=== PATIENT | female | born 1935 | race Caucasian/White ===

== ENCOUNTER 2018-12-15 02:03 | Inpatient (IN) ==
--- NOTE | 2018-12-15 03:38 | PROVIDER DOCUMENTATION ---
HPI-Abdominal Pain/GI Problem - General Chief Complaint: Vomiting Stated Complaint: VOMITING, DIZZY, BLOODY DIARRHEA Time Seen by Provider: 12/15/18 02:31 Source: patient, family Allergies/Adverse Reactions: Patient Allergies Allergy/AdvReac Type Severity Reaction Status Date / Time cephalexin monohydrate * Allergy Intermediate ITCHING Verified 05/22/17 13:12 [From Personal On Demand] Home Medications: Home Medication List Medication Instructions Recorded Confirmed Last Taken Type Allopurinol 100 mg PO BID 03/25/15 12/15/18 12/14/18 21:00 History Folic Acid 800 mg PO DAILY 03/25/15 12/15/18 12/14/18 09:00 History Maynard-3/Dha/Epa/Fish Oil [Maynard-3 1 tab PO BID 03/25/15 12/15/18 12/14/18 20:00 History Fish Oil 1,200 mg Sfgl] One A Day Womens Formula 1 tab PO DAILY 03/25/15 12/15/18 12/14/18 09:00 History Levothyroxine [Synthroid] 75 microgm PO DAILY 05/15/15 12/15/18 12/14/18 09:00 History Esomeprazole [Nexium] 40 mg PO DAILY 05/20/15 12/15/18 12/14/18 09:00 History Rivaroxaban [Xarelto] 20 mg PO WSUPPER #0 tablet 07/07/15 12/15/18 12/14/18 20: 00 Rx Losartan Potassium 100 mg PO DAILY 05/22/17 12/15/18 12/14/18 09:00 History Ranitidine HCl 150 mg PO DAILY 05/22/17 12/15/18 12/14/18 09:00 History Albuterol Sulfate Inhaler 2 puff INH Q6H PRN PRN 12/15/18 12/15/18 Unknown History [Ventolin Hfa] Amlodipine Besylate [Norvasc] 5 mg PO DAILY 12/15/18 12/15/18 12/14/18 09:00 History C,E,Zinc,Copper 11/Wesia7m/Lut 1 each PO DAILY 12/15/18 12/15/18 12/14/18 09:00 History [Ocuvite Adult 50 Plus Softgel] Carvedilol [Coreg] 12.5 mg PO DAILY 12/15/18 12/15/18 12/14/18 09:00 History Fexofenadine HCl 180 mg PO DAILY 12/15/18 12/15/18 12/14/18 09:00 History Fluticasone Propionate [24 Hour 9.9 ml NS DAILY 12/15/18 12/15/18 12/14/18 09: 00 History Allergy] Hydralazine [Apresoline] 25 mg PO TID 12/15/18 12/15/18 12/14/18 21:00 History Hydrocodone/Acetaminophen 1 tab PO 4XDAY PRN 12/15/18 12/15/18 12/14/18 20:00 History [Hydrocodone-Acetamin 5-325 mg] Lubiprostone [Amitiza] 24 mcg PO DAILY 12/15/18 12/15/18 12/14/18 09:00 History Meclizine HCl [Antivert] 25 mg PO TID 12/15/18 12/15/18 12/14/18 23:00 History Ondansetron HCl 4 mg PO TID PRN 12/15/18 12/15/18 12/14/18 23:00 History Polyethylene Glycol 3350 [Miralax] 17 gm PO DAILY 12/15/18 12/15/18 12/14/18 09: 00 History - History of Present Illness-ABD Nature of Presenting Problems: 83 yo WF with known history of diverticulitis, constipation and anticoagulant therapy for atrial fib presents with dry heaves and rectal bleeding. Her daughter photograped the toilet which does apper to show a lot of BRB and light brown stool in the toilet. She has been dizzy although BP has never been low. She has apparently had one diverticular bleed in the past. Review of Systems - Adult - REVIEW OF SYSTEMS - ADULT Constitutional: reports: no symptoms reported, see HPI. denies: chills, fever Eyes: reports: decreased vision, blurred vision Ears, Nose, Mouth & Throat: reports: no symptoms reported Cardiovascular: reports: no symptoms reported, irregular heart rate Respiratory: reports: no symptoms reported Gastrointestinal: reports: see HPI, abdominal pain, constipation, diarrhea, frequent heartburn, nausea, rectal bleeding, vomiting Genitourinary: reports: no symptoms reported Musculoskeletal: reports: no symptoms reported Integumentary: reports: no symptoms reported Neurological: reports: no symptoms reported Psychiatric: reports: no symptoms reported Endocrine: reports: no symptoms reported Past History - Adult - PAST MEDICAL HISTORY-ADULT Review of Records: reports: Old Records Reviewed, Nursing Assessment Review, Medications Reviewed Cardiovascular: reports: A-Fib, HTN, hyperlipidemia Respiratory: reports: sleep apnea, other (sarcoidosis) Gastrointestinal: reports: GERD Genitourinary: reports: kidney disease, other (only has one kidney) Musculoskeletal: reports: chronic pain (back; disc disease) Psychiatric: reports: anxiety Endocrine/Immune: reports: thyroid disorder - PRIOR SURGERIES/PROCEDURES Surgical/Procedure History: reports: cholecystectomy, hysterectomy, tonsillectomy, orthopedic (extremity) (LT ankle), other (lung bx, cataract sx) - IMMUNIZATION STATUS Childhood Immunizations: See Nurse Assessment Flu Vaccine: See Nurse Assessment - FAMILY HISTORY Family History: reviewed, not pertinent Physical Exam-General - PHYSICAL EXAM-ADULT Initial Vital Signs Reviewed: Yes - CONSTITUTIONAL General Appearance: alert, mild distress - EYES Eyes: PERRL/EOMI, pale conjunctivae - HEAD, EARS, NOSE, MOUTH & THROAT HENMT: normocephalic/atraumatic, moist mucous membranes - NECK Neck: non-tender, full range of motion, supple - RESPIRATORY Respiratory: chest non-tender, lungs clear - CARDIOVASCULAR Cardiovascular: normal peripheral pulses, no gallop, no JVD, irregularly irregular - GASTROINTESTINAL (ABDOMEN) Abdominal Exam: soft, no organomegaly, no pulsatile mass, tenderness. negative : guarding, rebound, Cm's sign - LYMPHATIC Lymphatic: no adenopathy - MUSCULOSKELETAL Back Exam: normal inspection Extremity: normal range of motion - SKIN Integumentary: normal color, normal turgor, warm/dry - NEUROLOGIC Neurologic: grossly normal Progress - PLAN OF CARE/RESULTS Progress/Plan/Lab Results: Vital Signs - 8 hr 12/15/18 02:08 Temperature 97.6 F Pulse Rate 81 Respiratory Rate 16 Blood Pressure 148/86 O2 Sat by Pulse Oximetry 100 Orders Category Date Time Status CBC WITH ELECTRONIC DIFF [HEME] Stat Lab 12/15/18 03:11 Ordered COMPREHENSIVE METABOLIC PANEL [CHEM] Stat Lab 12/15/18 03:11 Ordered TYPE & SCREEN [BBK] Stat Lab 12/15/18 03:11 Ordered Result Diagrams: 12/15/18 20:25 12/15/18 03:55 - REASSESSMENT Reassessment #1 Time Reassessed: 03:43 Status: unchanged (No additional bleeding . Awaiting lab.) - CONSULTS/PCP/HOSPITALIST Notification #1 *Consult/PCP/Hospitalist*: Dr Case Time Discussed: 04:00 Consult Disposition: Admit Departure - Departure Date of Disposition Decision: 12/15/18 Time of Disposition Decision: 04:00 DIAGNOSIS: GI bleeding Disposition: ADMITTED INPATIENT 09 Certified Medical Emergency: Emergent Condition: Fair - Critical Care Note This patient required my direct & personal management of CC.: Yes Total Time (mins): 30 Critical Care Statement: This patient required my direct personal management to treat or rule out processes, the absence of which, could potentiallly result in sudden, clinically significant life or limb threatening deterioration. Attestation - Physician/ FER Attestation The physician spent face to face time with patient:: Yes Advanced Practice Provider documentation review:: Supervising physician onsite and consulted in the evaluation and care of this patient. The physician did have a face to face encounter with the patient.
[2018-12-15 04:11] LABS: BASO# 0.04 X1000 (0.0-0.2); BASO% 0.3 % (0.0-0.8); EOS# 0.06 X1000 (0.0-0.7); EOS% 0.5 % (0.0-10.0); HEMATOCRIT 38.8 % (37.0-47.0); HEMOGLOBIN 12.4 g/dL (12.0-16.0); IMM GRAN# 0.06 X1000 (0.0-0.04); IMM GRAN% 0.5 % (0.0-0.5); LYMPH# 1.89 X1000 (1.2-3.4); LYMPH% 14.3 % (20.5-51.1); MCH 29.5 PG (27-31); MCV 92.4 FL (81-99); MPV 9.2 FL (7.4-10.4); NEUT# 10.78 X1000 (1.4-6.5); NEUT% 81.4 % (42.2-75.2); PLT 266 X1000 (130-400); WBC 13.23 X1000 (4.8-10.8)
[2018-12-15] MEDS ORDERED: ZOFRAN IV ONE (04:17)
[2018-12-15 04:34] LABS: AGAP 12; ALB/GLOB RATIO 1.2; ALBUMIN 4.3 g/dL (3.5-5.0); ALKALINE PHOSPHATASE 103 U/L (32-104); BUN 16 mg/dL (8-22); CHLORIDE 102 mmol/L (98-107); COSMO 282; CREATININE 0.7 mg/dL (0.5-0.9); ESTIMATED GFR > 60; GLUCOSE 155 mg/dL (70-104); GOT 16 U/L (10-30); GPT 13 U/L (10-36); POTASSIUM 4.3 mmol/L (3.5-5.1); SODIUM 139 mmol/L (136-145); TCO2 25 mmol/L (25-35); TOTAL BILIRUBIN 0.34 mg/dL (0.20-1.00); TOTAL PROTEIN 7.8 g/dL (6.3-8.3)
[2018-12-15] MEDS ORDERED: NS 1,000 ML ONE (05:24)
[2018-12-15] MEDS ORDERED: MORPHINE IV ONE (05:46)
[2018-12-15] MEDS ORDERED: PROTONIX IV ONE (05:46)
[2018-12-15] MEDS ORDERED: NS 1,000 ML IV ONE (05:46)
[2018-12-15] MEDS ORDERED: SODIUM CHLORIDE 0.9% INJ ONE ×2 (05:46→08:15)
[2018-12-15 06:52] LABS: INR 1.25; PROTIME 16.7 Seconds (11.0-16.0)
[2018-12-15 06:53] LABS: PTT 29.8 Seconds (22.3-41.8)
[2018-12-15 07:01] LABS: HEMOGLOBIN A1C 5.3 % (4.8-6.0)
--- NOTE | 2018-12-15 07:10 | HISTORY AND PHYSICAL ---
ADDENDUM The patient was admitted because of bloody diarrhea for a couple of days but no fever. She also complains of lower abdominal pain. Has increased hematochezia today with some dizziness. She is on Xarelto for atrial fibrillation. She also complains of nausea and had a few episodes of vomiting today. So far, her vital signs are 148/86, respirations 16, pulse 81, temperature 97.6. White count is 13,000, H and H 12 and 38, platelets 266. PT/INR pending. BUN 16, creatinine 0.7. Exam is notable for lower abdominal tenderness but no peritoneal signs. The patient is somewhat pallid. CT scan has been ordered to rule out diverticulitis and empiric antibiotics will be started. Her GI pH is Dr. Bull, and he will need to be consulted. In the interim, will start the patient on Zosyn versus Levaquin and Flagyl, and IV fluids, and treat symptomatically. cc: Mary Traore MD
[2018-12-15] MEDS ORDERED: VENTOLIN HFA INH PRN (08:15)
--- NOTE | 2018-12-15 08:19 | Diag Imaging Result Doc PS360 ---
EXAM: CHEST-PORTABLE 12/15/2018 HISTORY: SOB TECHNIQUE: AP portable at 0811 COMMENT: There is cardiomegaly. There is probable fibrosis in the lingula which has not changed since 12/30/2017. Otherwise there has been no significant change. IMPRESSION: Stable chest. Electronically signed by Geoff Monteiro 12/15/2018 8:16 AM
[2018-12-15] MEDS ORDERED: ZOFRAN IV PRN (08:30)
--- NOTE | 2018-12-15 08:36 | Diag Imaging Result Doc PS360 ---
EXAM: CT ABD/PELVIS W/PO AND IV CON INDICATION: Hematochezia,Diarrhea,Abdominal Tenderness ER11 TECHNIQUE: This exam was performed using automated exposure control, adjustment of mA or kV according to patient size, and/or use of iterative reconstruction technique. COMPARISON: 04/17/2017 FINDINGS: There is subsegmental atelectasis +/- fibrosis at the lung bases. The liver, gallbladder, spleen, and pancreas are unremarkable. There is a stable right adrenal adenoma. The right kidney is absent. There are a couple of small simple appearing renal cysts on the left. The left kidney is unremarkable, otherwise. The urinary bladder is unremarkable. There has been a prior hysterectomy. There is moderate diverticulosis coli mainly involving the sigmoid colon and distal descending colon. There is mild inflammatory stranding around the proximal sigmoid colon and distal descending colon that appears to emanate from diverticula indicating mild diverticulitis. No pericolonic abscess free gas is identified to indicate perforation. There is no evidence of bowel obstruction. 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 The remainder of the GI tract is essentially unremarkable. There are shotty small lymph nodes at the root of mesentery with surrounding haziness that is stable suggesting chronic mild mesenteric panniculitis. There is extensive multilevel degenerative arthropathy throughout the spine and lumbar scoliosis. IMPRESSION: 1.Suggestion of mild distal descending and proximal sigmoid colonic diverticulitis. No evidence of perforation. 2.Other incidental/nonacute findings detailed above. Electronically signed by Peterson Hernández 12/15/2018 8:33 AM
--- NOTE | 2018-12-15 08:36 | EKG Report ---
Test Performed on : 12/15/2018 04:29:44 AM Test Reason : cp Blood Pressure : / mmHG Vent. Rate : 071 BPM Atrial Rate : 069 BPM P-R Int : 000 ms QRS Dur : 082 ms QT Int : 424 ms P-R-T Axes : 000 -11 000 degrees QTc Int : 460 ms Atrial fibrillation. Nonspecific ST and T wave abnormality Abnormal ECG When compared with ECG of 30-DEC-2017 10:34, Nonspecific T wave abnormality no longer evident in Lateral leads Unconfirmed Result
[2018-12-15] MEDS ORDERED: COREG PO SCH (09:00)
[2018-12-15 09:49] LABS: HEMATOCRIT 36.3 % (37.0-47.0); HEMOGLOBIN 11.3 g/dL (12.0-16.0)
[2018-12-15] MEDS ORDERED: MORPHINE IV PRN (10:30)
[2018-12-15] MEDS: COREG PO SCH (10:44)
[2018-12-15] MEDS: NORVASC PO SCH (10:44)
[2018-12-15] MEDS: ZOSYN 3.375 GM in NS 50 ML IV SCH ×2 (10:45→17:29)
[2018-12-15] MEDS: NS 1,000 ML IV SCH (10:45)
[2018-12-15] MEDS: HUMALOG SUBQ SCH ×3 (11:53→21:41)
[2018-12-15 12:38] LABS: HEMATOCRIT 36.4 % (37.0-47.0); HEMOGLOBIN 11.5 g/dL (12.0-16.0)
[2018-12-15 13:59] LABS: URINE SOURCE CATH
[2018-12-15 14:07] LABS: BILIRUBIN URINE NEGATIVE (NEGATIVE); BLOOD URINE NEGATIVE (NEGATIVE); COLOR STRAW; GLUCOSE URINE NEGATIVE (NEGATIVE); KETONE URINE NEGATIVE (NEGATIVE); LEUKOCYTES URINE NEGATIVE (NEGATIVE); NITRITE URINE NEGATIVE (NEGATIVE); PH URINE 6.5; PROTEIN URINE 50 mg/dL (NEGATIVE); SP GRAVITY URINE 1.004; TURBIDITY URINE CLEAR (CLEAR); UROBILINOGEN URINE NORMAL (NORMAL)
[2018-12-15 14:10] LABS: UR EPITHELIAL CELLS <10 /HPF (<10); URINE BACTERIA NEGATIVE /HPF; URINE RBC <10 /HPF (<10); URINE WBC <10 /HPF (<10)
--- NOTE | 2018-12-15 15:45 | PROGRESS NOTE ---
DATE: 12/15/2018 SUBJECTIVE: The patient still with some lower abdominal pain which is somewhat improved. Still with tenderness in the suprapubic area. Nausea improved and no further vomiting. OBJECTIVE: A CT obtained suggesting diverticulitis. Currently on treatment with Zosyn. Gastroenterology on board, given bloody bowel movements, but no plans for urgent endoscopy at this time. It was not commented on by Radiology, but on partial review of her CT scan, she appears to have a markedly distended bladder. ASSESSMENT AND PLAN: On questioning, the family does report some issues with incontinence over the last day or 2. I suspect her suprapubic tenderness is related to this. Discussed with Nursing that we will place Cabral and monitor output. Once other issues are stabilized, we will remove Cabral and give voiding trial. If she continues to have urinary retention, then may need urologic evaluation. Repeat blood counts with slight down trend from admission but stable on last recheck. Continue monitoring blood counts and antibiotics for gastrointestinal (GI) bleed, diverticulitis, and Cabral for urinary retention.
[2018-12-15 16:01] LABS: HEMATOCRIT 34.4 % (37.0-47.0); HEMOGLOBIN 10.9 g/dL (12.0-16.0)
[2018-12-15] MEDS: TYLENOL PO PRN (17:29)
[2018-12-15] MEDS: PROTONIX IV SCH (19:55)
[2018-12-15 20:57] LABS: HEMATOCRIT 31.6 % (37.0-47.0); HEMOGLOBIN 9.9 g/dL (12.0-16.0)
[2018-12-16] MEDS: NS 1,000 ML IV SCH (00:01)
[2018-12-16] MEDS: ZOSYN 3.375 GM in NS 50 ML IV SCH ×4 (00:01→18:30)
[2018-12-16] MEDS: COREG PO SCH ×3 (00:01→22:01)
[2018-12-16 03:11] LABS: HEMATOCRIT 33.3 % (37.0-47.0); HEMOGLOBIN 10.5 g/dL (12.0-16.0)
--- NOTE | 2018-12-16 05:06 | CONSULTATION ---
DATE OF CONSULTATION: 12/15/2018 REASON FOR CONSULTATION: Rectal bleeding, nausea, vomiting, abdominal pain. HISTORY OF PRESENT ILLNESS: This is an 83-year-old white female known to our practice. She does have a history of diverticulitis. She has a history of constipation and had last been seen in our office in July of 2018. At that time she was taking Amitiza and MiraLAX for constipation. At that time she complained of occasional blood in the stool. She is on Xarelto. This presentation she reported onset of abdominal pain, episodes of nausea and vomiting, and several episodes of rectal bleeding. She had reported bright red blood with brown stool. Since admission she has had no further episodes of bleeding and no further episodes of vomiting. The patient also complained of burning when she urinates and lower pelvic pain. She has complained of some dizziness. Abdominal pelvis CT scan showed possible distal descending and proximal sigmoid diverticulitis with no evidence of perforation. Dr. Bull had viewed the CT scan and noted distention of her bladder. Again the patient had complained of burning and pain on urination with lower abdominal pain. PAST MEDICAL HISTORY: Atrial fibrillation on Xarelto, degenerative disk disease , GERD, constipation, hypertension, sarcoidosis, history of sleep apnea, spinal stenosis , thyroid disease. PAST SURGICAL HISTORY: Ankle surgery, cataract surgery, hysterectomy, lung surgery, tonsillectomy. She has had an EGD and colonoscopy. ALLERGIES: To Keflex causing itching. HOME MEDICATIONS: 1. Albuterol inhaler as needed. 2. Allopurinol 100 mg twice daily. 3. Norvasc 5 mg daily. 4. Multivitamin daily. 5. Coreg 12.5 mg daily. 6. Nexium 40 mg daily. 7. Fexofenadine 180 mg daily. 8. Fluticasone 9.9 daily. 9. Folic acid 800 mg daily, 10. Apresoline 25 mg 3 times a day. 11. Hydrocodone 5/325 four times a day as needed. 12. Synthroid 75 mcg daily. 13. Losartan 100 mg daily. 14. Amitiza 24 mcg daily to twice daily. 15. Antivert 25 mg 3 times a day. 16. Justice fish oil twice a day. 17. Zofran 4 mg 3 times a day as needed. 18. Women's multivitamin daily. 19. MiraLAX 17 g daily. 20. Ranitidine 150 mg daily. 21. Xarelto 20 mg with supper. SOCIAL HISTORY: No alcohol use. No tobacco use. She has 4 children. FAMILY HISTORY: Esophageal cancer - sister. GERD - mother and daughter. Hypertension - mother. IBS - daughter. Kidney disease - brother and sister. Stroke - mother. REVIEW OF SYSTEMS: Per history of present illness. PHYSICAL EXAMINATION: Vital Signs: Temperature 97.8 degrees, pulse listed as 44 previous pulse 55, prior to that 70, respirations 18, blood pressure 129/49. General: The patient is awake, alert, no acute distress. HEENT: Normocephalic and atraumatic. Pupils are equal, round and reactive to light. Sclerae are anicteric. Abdomen: With some tenderness lower abdomen, otherwise soft with positive bowel sounds. LABORATORY DATA: Hematology: WBC 13.23, hemoglobin 10.9, hematocrit 34.4, MCV 92.4. Coagulation: Protime 16.7, INR 1.25, PTT 29.8. Chemistry: Sodium 139, potassium 4.3, chloride 102, CO2 of 25, BUN 16, creatinine 0.7, glucose 155, total bilirubin 0.34, AST 16, ALT 13, alkaline phosphatase 103. IMAGING: Abdominal pelvis CT scan showed moderate diverticulosis, inflammatory stranding around the sigmoid colon and distal sigmoid colon with possible mild diverticulitis, no evidence of bowel obstruction. On viewing the CT scan with Dr. Bull he noted distention of the bladder. Cabral catheter was placed. Her I and Os: She has had 400 mL of urine output with Cabral catheter. ASSESSMENT AND PLAN: 1. Rectal bleeding. 2. Nausea and vomiting. 3. Dysuria with enlarged bladder, Cabral catheter was placed. 4. Possible diverticulitis per CT scan. Continue antibiotics. We will continue symptomatic treatment and supportive care. Monitor for further active bleeding. She has not had any further bleeding since admission. Monitor hemoglobin and hematocrit and transfuse packed red blood cells as needed. Cabral catheter was ordered and placed and return urine output of 400 mL. The patient was also seen by Dr. Bull. Thank you for this consultation. Dictated by ALEX Archer for Navin Bull MD cc: ALEX Jones MD [facility]
[2018-12-16] MEDS: SYNTHROID PO SCH ×2 (05:53→06:15)
[2018-12-16] MEDS: HUMALOG SUBQ SCH ×4 (06:15→22:02)
[2018-12-16 06:58] LABS: BASO# 0.06 X1000 (0.0-0.2); BASO% 0.8 % (0.0-0.8); EOS% 4.2 % (0.0-10.0); HEMATOCRIT 34.8 % (37.0-47.0); HEMOGLOBIN 10.8 g/dL (12.0-16.0); LYMPH% 35.1 % (20.5-51.1); MCH 29.3 PG (27-31); MCV 94.6 FL (81-99); MONO# 0.61 X1000 (0.11-0.59); MONO% 8.6 % (1.7-9.3); MPV 9.2 FL (7.4-10.4); NEUT# 3.66 X1000 (1.4-6.5); NEUT% 51.3 % (42.2-75.2); PLT 220 X1000 (130-400); RBC 3.68 XMIL (4.2-5.4); RDW 15.3 % (11.5-14.5); WBC 7.13 X1000 (4.8-10.8)
[2018-12-16 07:18] LABS: AGAP 11; BUN 8 mg/dL (8-22); CHLORIDE 111 mmol/L (98-107); COSMO 287; CREATININE 0.7 mg/dL (0.5-0.9); ESTIMATED GFR > 60; GLUCOSE 95 mg/dL (70-104); POTASSIUM 3.7 mmol/L (3.5-5.1); SODIUM 145 mmol/L (136-145); TCO2 23 mmol/L (25-35)
[2018-12-16] MEDS ORDERED: SODIUM CHLORIDE 0.9% 10 ML ONE (07:22)
--- NOTE | 2018-12-16 07:39 | HISTORY AND PHYSICAL ---
PRIMARY CARE PROVIDER: Dr. Orin Chan GASTROENTEROLOGY: Navin Bull MD CHIEF COMPLAINT: Nausea, vomiting, and diarrhea. HISTORY OF PRESENT ILLNESS: Ms. Galindo is an 83-year-old elderly female [facility] reported symptoms of bloody diarrhea that has increased for the past few days. She has had increased hematochezia today with some associated symptoms of dizziness, weakness and fatigue. She also reports that she has some nausea and a few episodes of vomiting, though no reported hematemesis or coffee ground emesis. She also has been complaining of some lower abdominal pain as well. She has denied any fever or body aches though has reported that she has felt hot and cold, so maybe she has been experiencing some chills. She also has been reporting some shortness of breath at rest as well though denies any cough. She denies any headache, chest pain, or dysuria, though the patient has reported some occasional incontinence. She denies any pain, numbness, or tingling in extremities. The patient does have a history of having diverticulitis and has had a past history of diverticular bleed. She denies any [id number] NSAID medications though she does have atrial fibrillation and is on anticoagulation with Xarelto. She also does have a history of gastroesophageal reflux disease with an EGD and colonoscopy in May 2017 showing that she had gastritis, lipoma of the ascending colon and diverticulosis. Upon evaluation in the ER, the patient's initial vital signs were 97.6, heart rate 81, respirations 16, blood pressure 148/86, and oxygen saturation 100% on room air. Hemoglobin and hematocrit are stable at this time with hemoglobin being 12.4 and hematocrit 38.8. INR is 1.25. Her chemistries were pretty unremarkable. Upon my examination in the ER, we did find that the patient has been having hematochezia for quite awhile, that Dr. Bull has been following this, though this did increase over the last few days with the worst being this evening prior to her arrival and now she is having associated symptoms with dizziness, weakness and fatigue, as well as some nausea and vomiting. She is complaining of some lower abdominal pain, though the patient was quite tender upon examination. This was pretty much generalized though was the worst in her right lower quadrant. Given this, we did perform CT abdomen and pelvis with oral and IV contrast which did show that there was suggestion of mild distal descending and proximal sigmoid colonic diverticulitis but no evidence of perforation. The patient will be admitted for further treatment and evaluation of diverticulitis and lower GI bleed. REVIEW OF SYSTEMS: A 14-point review of systems was conducted with the patient and all were negative except for pertinent positives mentioned above in HPI. PAST MEDICAL HISTORY: 1. Hypertension. 2. Hyperlipidemia. 3. Chronic atrial fibrillation on anticoagulation with Xarelto. 4. Sleep apnea for which she wears CPAP at night. 5. History of sarcoidosis. 6. Gastroesophageal reflux disease. 7. Esophagitis. 8. Duodenitis. 9. Gastritis. 10.Diverticulitis with a history of previous diverticular bleed. 11.Anxiety. 12.Hypothyroidism. 13.Chronic kidney disease. 14.Steatosis of the liver. 15.Vertigo. 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 PAST SURGICAL HISTORY: 1. Hysterectomy. 2. Tonsillectomy. 3. Left ankle surgery. 4. Lung biopsy. 5. Bilateral cataract surgery. SOCIAL HISTORY: The patient has no known current or past history of tobacco, alcohol, or illicit drug use. She does live alone though her daughter lives next to her. According to her daughter, the patient is pretty much bed bound except for she does occasionally get up to a wheelchair though requires assistance for this. FAMILY HISTORY: Positive for her mother having a history of stroke, and her father as well as other family members having diabetes mellitus. ALLERGIES: The patient has allergy to Keflex. HOME MEDICATIONS: 1. Ventolin HFA inhaler 2 puffs inhaled q.6 hours p.r.n. 2. Allopurinol 100 mg p.o. b.i.d. 3. Norvasc 5 mg p.o. daily. 4. Ocuvite Adult 50 plus soft gel 1 p.o. daily. 5. Coreg 2.5 mg p.o. daily. 6. Nexium 40 mg p.o. daily. 7. Fexofenadine 180 mg p.o. daily. 8. Fluticasone propionate 1 spray in bilateral nares daily. 9. Folic acid 800 mg p.o. daily. 10.Apresoline 25 mg p.o. t.i.d. 11.[place] 5 mg 1 p.o. 4 times a day p.r.n. for pain. 12.Levothyroxine 75 mcg p.o. daily. 13.Losartan potassium 100 mg p.o. daily. 14.Amitiza 25 mcg p.o. daily. 15.Antivert 25 mg p.o. t.i.d. 16.[place] 3 fish oil 200 mg soft gel 1 tablet p.o. b.i.d. 17.Zofran 4 mg p.o. t.i.d. p.r.n. for nausea. 18.One A Day Women's' Formula 1 tablet p.o. daily. 19.MiraLAX 17 grams p.o. daily. 20. [*] 100 mg p.o. daily. 21.Xarelto 20 mg p.o. with supper. DIAGNOSTIC DATA/LABORATORY RESULTS: White blood cell count is 13,230, hemoglobin 12.4, hematocrit 38.8, platelet count 266. PT 16.7, INR 1.25, PTT 29.8. Sodium 139, potassium 4.3, chloride 102, serum bicarb 25, BUN 16, creatinine 0.7, glucose 155. Calcium 10. Liver function tests within normal limits. Urinalysis was obtained and showed positive for protein, negative for glucose, ketones, blood, nitrites, leukocytes, white blood cells or bacteria. EKG showed atrial fibrillation at a rate of 71 with a QTC of 460. Chest x-ray showed no acute abnormalities as per Radiology. CT abdomen and pelvis did show suggestion of mild distal descending and proximal sigmoid colonic diverticulitis. There was no evidence of perforation. Please see full report for other incidental and nonacute findings. PHYSICAL EXAMINATION: VITAL SIGNS: Heart rate 71, respirations 20, blood pressure 177/79, oxygen saturation 96% on room air. GENERAL: Ms. Galindo is a pleasant, elderly female. She was resting on the ER stretcher. She was in no acute distress. She was awake, alert, and able to answer questions appropriately. HEENT: Head is atraumatic, normocephalic. Pupils are equal, round and reactive to light, 3 mm bilaterally and brisk. Subconjunctivae were pink. Oral mucosa is moist. Oropharynx clear. NECK: Supple. Trachea midline. CARDIOVASCULAR: The patient has S1 and S2 present. There were no murmurs, gallops or rubs appreciated. She did have a heart rate in the 70s with an irregularly irregular rhythm. PULMONARY: The patient has symmetrical chest expansion bilaterally. Lungs sounds were clear to auscultation in bilateral full oliveira. ABDOMEN: Soft, did not appear to be distended, though the patient did have tenderness noted upon palpation that was generalized though was worse in the right lower quadrant. Bowel sounds were present in all four quadrants. EXTREMITIES: No cyanosis or edema noted. Pulse, motor and sensory were intact in all extremities. Pedal pulses and radial pulses were 2+ bilaterally. INTEGUMENTARY: The patient's skin is pink, warm, and dry. NEUROLOGIC: The patient is alert and oriented x4. She is experiencing some generalized weakness at this time. There were no focal neurologic deficits noted. ASSESSMENT AND PLAN: 1. Gastrointestinal bleeding. At this time, we suspect this is a lower gastrointestinal bleed. She has been having reports of hematochezia for what sounds like is probably a few months, being followed by Dr. Bull though they report this has been worse over the last couple of days with the worst being just prior to her arrival to the emergency room. She was having associated symptoms of dizziness, fatigue and weakness as well as some nausea and vomiting. The patient does have a history of diverticulitis with a diverticular bleed. CT abdomen and pelvis did show mild distal descending and proximal sigmoid colonic diverticulitis, though there was no evidence of perforation. The patient's hemoglobin and hematocrit were stable at this time. She is also hemodynamically stable. Blood pressure is adequate and slightly elevated. We will continue to monitor her hemodynamic status with frequent vital signs and q.4 hour hemoglobin and hematocrit checks. She has been typed and cross matched. Given her findings of diverticulitis, we have gone ahead and placed her with antibiotic coverage with Zosyn. Blood cultures have been obtained as well. We will hold her Xarelto and any other anticoagulants at this time. We have placed her with Protonix 40 mg IV q.12 hours and have placed a consult with Dr. Bull, and will await his evaluation and further recommendations for management. 2. Diverticulitis. Will continue with treatment as mentioned above for #1. 3. Chronic atrial fibrillation. The patient is on anticoagulation with Xarelto. We have held this. We will continue her Coreg. The patient is in atrial fibrillation at this time though she is rate controlled. Will continue to monitor closely. 4. Hypertension. We will implement her Coreg at this time and monitor her blood pressure in response to this. If her blood pressure remains high, we can implement some of her other blood pressure medications though we will monitor this closely given that she does possibly have an acute gastrointestinal bleed. 5. Diabetes mellitus. We have placed the patient on Lispro sliding scale insulin. Will do pattern fingerstick blood sugars. 6. Sleep apnea. We will ask the patient to bring her CPAP from home so that she can use this while in the hospital. 7. Hypothyroidism. Will continue her levothyroxine. 8. Deep venous thrombosis prophylaxis will be provided with sequential compression devices. The patient has been placed on the medical floor with telemetry. She will have vital signs q.4 hours. Will do strict intake and output and incentive spirometry. She will be on a clear liquid diet. Will also repeat a CBC and BMP in the morning. Further orders and recommendations pending hospital course, diagnostic studies and physician evaluation. We also will give her 1 liter normal saline bolus and continue with gentle fluid hydration with normal saline at 85 mL per hour. Dictated by ALEX Aguilar for Mary Traore MD cc: Mary Traore MD
[2018-12-16] MEDS: NORVASC PO SCH (09:36)
[2018-12-16] MEDS: PROTONIX IV SCH (09:36)
--- NOTE | 2018-12-16 13:59 | PROGRESS NOTE ---
DATE: 12/16/2018 SUBJECTIVE: Patient states she feels a little better today. She reports having a bowel movement with no noted rectal bleeding. Abdominal pain has improved. She has tolerated some clear liquids. OBJECTIVE: Vital Signs: Temperature 97.7 degrees, pulse 62, respirations 21, blood pressure 179/66. General: Patient is awake, alert, in no acute distress. Abdomen: Soft, nontender at present time. Positive bowel sounds. LABORATORY DATA: Hematology: WBCs 7.13, hemoglobin 10.8, hematocrit 34.8, MCV 94.6, platelets 220,000. Chemistry: Sodium 145, potassium 3.7, chloride 111, CO2 of 23, BUN 8, creatinine 0.7, glucose 95. ASSESSMENT AND PLAN: 1. Rectal bleeding. Seems to have resolved. 2. Dysuria with enlarged bladder. Patient has had Cabral catheter and having good urine output. 3. Diverticulitis per CT scan. Continue antibiotics. PLAN: Continue to monitor for any further active bleeding. Her hemoglobin and hematocrit have been stable. Continue antibiotic continue symptomatic treatment and supportive care. Further plans to be made according to her progress. I have discussed this case with Dr. Bull. Dictated by ALEX Archer for Navin Bull MD cc: ALEX Jones MD
--- NOTE | 2018-12-16 15:40 | PROGRESS NOTE ---
DATE: 12/16/2018 Interval history. Ms. Galindo was admitted for left lower quadrant diverticulitis and lower gastrointestinal bleed. She was being managed with intravenous antibiotics. She has been tolerating diet well. SUBJECTIVE: Patient and her son at bedside. Patient states she is feeling better than she came in. She has some nausea but denies any more vomiting. She had 1 episode of dizziness but she has had that as a history of vertigo. Her abdominal pain has significantly decreased now it is localized to left lower quadrant. She has had bowel movements overnight which did not look bloody. I discussed with them about diverticulitis and our treatment plan, answered all of her questions. OBJECTIVE: Currently vitals temperature 97.7 degrees, pulse 62, respiratory 21 , blood pressure 179/66 saturating 100% on room air. Patient appears hard of hearing. Oral cavity is moist. Air entry bilaterally equal. No wheeze, rhonchi, crackles.Cardiovascular: S1, S2 normal. No murmur, rub, or gallop. Abdomen: Soft. Tenderness in left lower quadrant. Active bowel sounds. No hepatosplenomegaly. No lower extremity edema. Neurologic: Alert and oriented x3. LABS: Suggestive of resolution of leukocytosis, stable hemoglobin, hematocrit and platelet count. Electrolytes suggestive of high chloride but normal kidney function. Microbiology, blood culture no growth till date. IMAGING: No new imaging data today. ASSESSMENT AND PLAN: 1. Acute diverticulitis leading to acute lower gastrointestinal bleed. Continue patient on intravenous Zosyn, continue patient on clear liquid diet. I will advance it to GI soft diet tomorrow if she continues to do well. GI on board. 2. Acute blood loss anemia because of acute lower gastrointestinal bleed. It has stopped spontaneously. She did not require any intervention. Currently hemoglobin is acceptable range. No need of transfusion. 3. History of chronic atrial fibrillation on chronic anticoagulation with Xarelto currently in atrial fibrillation with controlled ventricular rate. Continue patient's home carvedilol and continue to hold Xarelto. 4. Essential hypertension. Continue amlodipine, hypothyroidism, continue levothyroxine, hyperlipidemia, continue omega-3 fatty acids, history of sarcoidosis and cough, continue albuterol sulfate as needed. 5. History of chronic gastroesophageal reflux disease. Continue esomeprazole. 6. Disposition. Patient remains inside the hospital for need for intravenous antibiotics. I will have physical therapy evaluate the patient. For her acute urinary retention Cabral catheter has been placed. I will give her a voiding trial tomorrow. Her urinalysis was unremarkable for infection. Plan of care was discussed with patient and her family at bedside. All of the questions have been answered. cc: Narayan Middleton MD MTDD
[2018-12-16] MEDS: FISH OIL CONCENTRATE PO SCH (22:01)
[2018-12-17] MEDS: ZOSYN 3.375 GM in NS 50 ML IV SCH ×4 (00:38→18:39)
[2018-12-17] MEDS: SYNTHROID PO SCH (06:35)
[2018-12-17] MEDS: FISH OIL CONCENTRATE PO SCH ×2 (08:34→20:12)
[2018-12-17] MEDS: NEXIUM PO SCH (08:34)
[2018-12-17] MEDS: FLONASE NAS SCH (08:34)
[2018-12-17] MEDS: NORVASC PO SCH (08:34)
[2018-12-17] MEDS: COREG PO SCH ×2 (08:35→20:13)
[2018-12-17] MEDS: HUMALOG SUBQ SCH ×3 (08:40→16:55)
--- NOTE | 2018-12-17 15:42 | PROGRESS NOTE ---
DATE: 12/17/2018 SUBJECTIVE: Patient is awake and alert in no acute distress. Her family is at the bedside. Daughter states they did discontinue her Cabral catheter, and she has had 3 to 4 incontinence of urine. They state there was a bladder scan done that showed 400 mL of urine. Prior to her admission, patient did not have incontinence. She does complain of burning and pain with urination, but her urinalysis did not show evidence of infection. She has had no further rectal bleeding. She did have a loose stool. OBJECTIVE: Vital Signs: Temperature 97.5 degrees, pulse 60, respirations 20, blood pressure 171/66. General: Patient is awake, alert, and in no acute distress. LABORATORY: Hematology: WBC 7.13, hemoglobin 10.8, hematocrit 34.8. Chemistry: Sodium 145, potassium 3.7, chloride 111, CO2 of 23, BUN 8, creatinine 0.7, glucose 95. ASSESSMENT: 1. Diverticulitis on antibiotics. 2. Anemia. Continue to monitor. 3. Rectal bleeding has resolved. 4. Atrial fibrillation. Her Xarelto is currently on hold. 5. Urinary retention and incontinence. RECOMMENDATIONS: Recommend patient try to get up to at least the bedside commode to see if she can empty her bladder better. If she continues to have issues, she may need a Urology consultation. We will defer to hospitalist for this management. GI will continue to follow during her hospital course, and further plans will be made as needed. I have discussed this case with Dr. Bull. Dictated by ALEX Archer for Navin Bull MD cc: ALEX Jones MD
[2018-12-17] MEDS ORDERED: ANTIVERT PO PRN (15:48)
--- NOTE | 2018-12-17 19:25 | PROGRESS NOTE ---
DATE: 12/17/2018 INTERVAL HISTORY: No events overnight. The patient was able to come out of bed and sit in the chair after physical therapy help. Her Cabral catheter was removed. After that , she has been urinating in her diaper. She has not been able to come out of bed in sit in the commod. The patient is denying any chest pain, nausea/vomiting, abdominal pain. Her nausea/vomiting has resolved. She had a loose bowel movement today currently. OBJECTIVE: Vital signs: She has been afebrile with temperature of 97.3 degrees , pulse 55, blood pressure 170/67, saturating 97% room air. General: She does not appear in any acute distress. HEENT: Oral cavity is moist. Lungs: Air entry bilaterally equal. No wheeze , rhonchi, crackles. Heart: S1, S2 normal. No murmur, rub, gallop. Abdomen: Soft. There is no tenderness in the left lower quadrant. Active bowel sounds. Extremities: No lower extremity edema. Neurological: She is alert oriented x3. LABORATORY DATA: No new labs today. CBC and BMP will be repeated tomorrow. MICROBIOLOGY: No blood culture data. ASSESSMENT AND PLAN: 1. Acute diverticulitis leading to acute lower gastrointestinal bleed, improving. She has not had any GI bleed episode since 48 hours. She is hemodynamically stable. Change IV Zosyn to p.o. levofloxacin and metronidazole for possible discharge tomorrow. Continue patient on full liquid diet and change it to GI soft tomorrow morning. Gastroenterology on board. 2. Acute blood loss anemia because of acute lower gastrointestinal bleed. Currently in acceptable range. She did not require any transfusion. 3. History of chronic atrial fibrillation, on chronic anticoagulation with Xarelto. Currently in atrial fibrillation with controlled ventricular rate. Continue patient's home carvedilol. Continue to hold Xarelto. At the time of discharge, she could be started on aspirin after discussion, and she should discuss with her airline pilot/first officer about future need of anticoagulation. 4. Essential hypertension. I have restarted home amlodipine and added home hydralazine and losartan. 5. Continue levothyroxine for hypothyroidism, albuterol/ipratropium for her cough, omega-3 fatty acids for hyperlipidemia. Continue esomeprazole for chronic gastroesophageal reflux disease (GERD). 6. She also has known history of sarcoidosis. DISPOSITION: The patient's antibiotics will be changed to p.o. antibiotics today. Her diet will be advanced tomorrow. If she continues to do better, she should be discharged home on PO antibiotics. Apparently, patient's son lives just next door, and patient lives independently using a motorized wheelchair. The patient should discuss with outpatient doctor about anticoagulation in the future. She should be discharged on aspirin. Plan of care was discussed with her and her daughter at bedside. All of their questions have been answered. cc: Narayan Middleton MD MTDD
[2018-12-17] MEDS ORDERED: LEVAQUIN PO SCH (20:00)
[2018-12-17] MEDS: APRESOLINE PO SCH (20:13)
[2018-12-17] MEDS: FLAGYL PO SCH (20:13)
[2018-12-17] MEDS: ZYLOPRIM PO SCH (20:13)
[2018-12-17] MEDS: COZAAR PO SCH (20:13)
[2018-12-17] MEDS: VENTOLIN HFA INH SCH (21:05)
[2018-12-18] MEDS: VENTOLIN HFA INH SCH ×3 (03:30→15:53)
[2018-12-18] MEDS: SYNTHROID PO SCH (06:13)
[2018-12-18] MEDS: FLAGYL PO SCH ×2 (06:13→13:50)
[2018-12-18] MEDS: TYLENOL PO PRN (06:13)
[2018-12-18] MEDS: HUMALOG SUBQ SCH ×4 (06:16→16:57)
[2018-12-18] MEDS: ZYLOPRIM PO SCH (08:20)
[2018-12-18] MEDS: FISH OIL CONCENTRATE PO SCH (08:20)
[2018-12-18] MEDS: NEXIUM PO SCH (08:21)
[2018-12-18] MEDS: COREG PO SCH (08:21)
[2018-12-18] MEDS: COZAAR PO SCH (08:21)
[2018-12-18] MEDS: FLONASE NAS SCH (08:21)
[2018-12-18] MEDS: NORVASC PO SCH (08:21)
[2018-12-18] MEDS: APRESOLINE PO SCH ×2 (08:21→13:50)
[2018-12-18 08:29] LABS: BASO# 0.04 X1000 (0.0-0.2); BASO% 0.5 % (0.0-0.8); EOS# 0.36 X1000 (0.0-0.7); EOS% 4.9 % (0.0-10.0); HEMOGLOBIN 10.7 g/dL (12.0-16.0); LYMPH# 2.51 X1000 (1.2-3.4); LYMPH% 34.5 % (20.5-51.1); MCH 28.7 PG (27-31); MCHC 30.6 g/dL (33-37); MCV 93.8 FL (81-99); MONO% 9.6 % (1.7-9.3); MPV 9.4 FL (7.4-10.4); NEUT# 3.67 X1000 (1.4-6.5); NEUT% 50.5 % (42.2-75.2); PLT 222 X1000 (130-400); RBC 3.73 XMIL (4.2-5.4); RDW 14.9 % (11.5-14.5); WBC 7.28 X1000 (4.8-10.8)
[2018-12-18 08:32] LABS: AGAP 10; BUN 4 mg/dL (8-22); CALCIUM 9.4 mg/dL (8.8-10.2); CHLORIDE 106 mmol/L (98-107); COSMO 282; CREATININE 0.6 mg/dL (0.5-0.9); ESTIMATED GFR > 60; GLUCOSE 96 mg/dL (70-104); SODIUM 143 mmol/L (136-145); TCO2 27 mmol/L (25-35)
[2018-12-18 08:37] LABS: POTASSIUM 2.9 mmol/L (3.5-5.1)
[2018-12-18] MEDS ORDERED: NORVASC PO SCH (09:00)
[2018-12-18] MEDS ORDERED: KLOR-CON PO ONE (17:26)
[2018-12-18 18:25] VITALS: BP 127/50
[2018-12-18] MEDS ORDERED: FLOMAX PO SCH (21:00)
--- NOTE | 2018-12-19 08:17 | DISCHARGE SUMMARY ---
ADMISSION DATE: 12/15/2018 DISCHARGE DATE: 12/18/2018 DISCHARGE DIAGNOSES: 1. Acute diverticulitis leading to acute lower GI bleed. 2. Acute blood loss anemia due to lower GI bleed. 3. Urinary retention. 4. History of chronic atrial fibrillation on chronic anticoagulation with Xarelto which has been stopped. 5. Essential hypertension. 6. Hypothyroidism. 7. GERD. 8. Apparently history of sarcoidosis. HOSPITAL COURSE: An 83-year-old female presented to the emergency department with a chief complaining of bloody diarrhea admitted on 12/15/2018 apparently associated with nausea and vomiting, but no coffee-grounds emesis or hematemesis. He is also complaining of some lower abdominal pain and chills. She has a history of diverticulitis, and also history of diverticular bleed. CT of abdomen and pelvis with IV contrast showed distal descending and proximal sigmoid colonic diverticulitis, but no evidence of perforation. In the emergency department, the patient's vital signs were 97.6, heart rate 81, respiratory rate 16, blood pressure 148/86, and oxygen saturation 100% on room air. Hemoglobin and hematocrit were stable at 12.4 and 38.8, INR 1.2. Upon examination in the emergency department, this patient has been having hematochezia, and Dr. Bull has been following these, but apparently it has been increased for the past few days with the worst being the morning of admission associated with dizziness, weakness and fatigue. Dr. Bull evaluated this patient, and he suggested that probably this patient has diverticulitis per CT scan so she was placed on antibiotics since the beginning, and she was improving on a daily basis. Actually, she has not been bleeding since admission. Also, this patient was at some point complaining of dysuria with enlarged bladder. Cabral catheter was placed, but a couple of days later was removed, and we noticed that this patient was having urinary retention. Actually, she was voiding, but when we bladder scanned her she always has more than 400 mL sitting in the bladder. Today, I contacted Dr. Nunez from Urology Department and he suggested to put a Cabral catheter and discharge this patient with a Cabral. He will re-evaluate this patient as an outpatient in seven days or so. He suggested to put this patient on Flomax as well. I talked to the family and the patient at the bedside who seems to understand and proceed with the plan. We have to stop the anticoagulation since this patient was having gastrointestinal bleed. They also seemed to understand this, and even though I suggested to use aspirin I realized that this patient also has a medical history of gastric ulcers a long time ago. I suggested to the patient and the family to talk to her statement clerk and primary care doctor. Upon discharge, the patient was in stable medical condition tolerating p.o. She does not ambulate, but she is able to transfer from one place to another with help at this moment like the commode or the chair. DISCHARGE EXAMINATION: Vital Signs: Temperature 98.3 degrees, pulse 57, respiratory rate 18, blood pressure 127/50, and oxygen saturation 99 percent on room air. HEENT: Head normocephalic. No trauma. PERRLA. Neck: Supple. No JVD. No masses. Central trachea. Chest: Clear to auscultation. No wheezing. No rales. Abdomen: Soft, nontender to palpation at the level of the left lower quadrant and nondistended. Positive bowel sounds. Extremities: No edema. No clubbing. No cyanosis. Neurological: The patient was alert and oriented x3. She is hard of hearing. LABORATORY: WBC 7.2, hemoglobin 10.7, hematocrit 35 and platelets 222,000. Sodium 143, potassium 2.9, chloride 106, bicarbonate 27, BUN 4, creatinine 0.6, glucose 96, and calcium 9.4. DISCHARGE MEDICATIONS: 1. MiraLAX 17 g p.o. daily 1 a day. 2. Multivitamins: 1 tablet p.o. daily. 3. Ondansetron 4 mg p.o. t.i.d. as needed. 4. [place]-3 Fish Oil 1200 mg b.i.d. 5. Meclizine 25 mg p.o. b.i.d. 6. Losartan 100 mg p.o. daily. 7. Synthroid 75 mcg p.o. daily. 8. [place] 7.5 1 tablet p.o. 4 times a day as needed. 9. Hydralazine 25 mg p.o. t.i.d. 10. Folic Acid 800 mg p.o. daily. 11. Fluticasone nasal spray daily. 12. Fexofenadine 100 mg p.o. daily. 13. Nexium 40 mg p.o. daily. 14. Carvedilol 12.5 mg p.o. b.i.d. 15. Ocuvite Adult 50+ soft gel 1 tablet p.o. daily. 16. Amlodipine 5 mg p.o. daily. 17. Allopurinol 100 mg p.o. b.i.d. 18. Ventolin HFA 2 puff inhaler q.6 hours as needed for shortness of breath. 19. Tamsulosin 0.4 mg p.o. at bedtime. 20. Flagyl 500 mg p.o. q.8 hours to complete 8 days. 21. Levofloxacin 500 mg p.o. daily for 8 days. 22. Potassium chloride x1 40 mEq x1. FOLLOW UP: 1. Cardiology Department. They will call for an appointment tomorrow or next Saturday. 2. Follow up with Dr. Orin Chan in 1 week. 3. Follow up with Dr. Bull in 3 weeks. 4. Follow up with Urology Department in 7 to 10 days. She will be discharged with a Cabral catheter. TIME SPENT: Time discharging this patient 40 minutes. cc: Gurpreet Srivastava MD MTDD
== END 2018-12-18 19:02 | disposition home or self-care (01) | DRG 378 ==
LOC: ED 02:03 → 4N 06:50 → SUATTDRO 06:50
PROVIDERS: ATTEND Internal Medicine
CPT/HCPCS: 71010; 71045; 74177; 80048; 80053; 81001; 82948; 83036; 84443; 85014; 85018; 85025; 85610; 85730; 86850; 86900; 86901; 87040; 93005; 94640; 94760; 94761; 94799; 96374; 96375; 97110; 97162; 99284; A9270; C9113; J2270; J2405; J2543; J7030; Q9967; S0164; XXXXX

== ENCOUNTER 2019-01-01 22:19 | Inpatient (IN) ==
[2019-01-01 23:16] LABS: URINE SOURCE CATH
[2019-01-01 23:23] LABS: BILIRUBIN URINE NEGATIVE (NEGATIVE); BLOOD URINE NEGATIVE (NEGATIVE); COLOR STRAW; GLUCOSE URINE NEGATIVE (NEGATIVE); KETONE URINE NEGATIVE (NEGATIVE); LEUKOCYTES URINE NEGATIVE (NEGATIVE); NITRITE URINE NEGATIVE (NEGATIVE); PH URINE 7.5; PROTEIN URINE TRACE mg/dL (NEGATIVE); TURBIDITY URINE CLEAR (CLEAR); UROBILINOGEN URINE NORMAL (NORMAL)
[2019-01-01 23:24] LABS: UR EPITHELIAL CELLS <10 /HPF (<10); URINE BACTERIA NEGATIVE /HPF; URINE WBC <10 /HPF (<10)
[2019-01-01 23:26] LABS: BASO% 1.2 % (0.0-0.8); EOS# 0.36 X1000 (0.0-0.7); EOS% 4.3 % (0.0-10.0); HEMATOCRIT 37.5 % (37.0-47.0); HEMOGLOBIN 11.8 g/dL (12.0-16.0); IMM GRAN# 0.04 X1000 (0.0-0.04); IMM GRAN% 0.5 % (0.0-0.5); LYMPH# 1.95 X1000 (1.2-3.4); LYMPH% 23.4 % (20.5-51.1); MCH 29.1 PG (27-31); MCHC 31.5 g/dL (33-37); MCV 92.4 FL (81-99); MONO% 8.4 % (1.7-9.3); MPV 9.2 FL (7.4-10.4); NEUT% 62.2 % (42.2-75.2); PLT 302 X1000 (130-400); RBC 4.06 XMIL (4.2-5.4); RDW 15.7 % (11.5-14.5); WBC 8.35 X1000 (4.8-10.8)
[2019-01-01 23:32] LABS: INR 1.02; PROTIME 14.2 Seconds (11.0-16.0)
[2019-01-01 23:33] LABS: PTT 27.5 Seconds (22.3-41.8)
--- NOTE | 2019-01-01 23:40 | PROVIDER DOCUMENTATION ---
This chart was entered by Karina Hernández Scribe, acting as scribe for Deemtris Marin MD. HPI-General Adult - General Stated Complaint: HYPERTENSION, YUAN, LEG WEAKNESS Time Seen by Provider: 01/01/19 22:32 Source: patient Allergies/Adverse Reactions: Patient Allergies Allergy/AdvReac Type Severity Reaction Status Date / Time cephalexin monohydrate * Allergy Intermediate ITCHING Verified 01/02/19 00:15 [From Keflex] Home Medications: Home Medication List Medication Instructions Recorded Confirmed Last Taken Type Allopurinol 100 mg PO BID 03/25/15 01/02/19 01/01/19 History Folic Acid 800 mg PO DAILY 03/25/15 01/02/19 01/01/19 History [place]-3/Dha/Epa/Fish Oil [[place]-3 1 tab PO BID 03/25/15 01/02/19 01/01/19 History Fish Oil 1,200 mg Sfgl] One A Day Womens Formula 1 tab PO DAILY 03/25/15 01/02/19 01/01/19 History Levothyroxine [Synthroid] 75 microgm PO DAILY 05/15/15 01/02/19 01/01/19 History Losartan Potassium 100 mg PO DAILY 05/22/17 01/02/19 01/01/19 History Albuterol Sulfate Inhaler 2 puff INH Q6H PRN PRN 12/15/18 01/02/19 01/01/19 History [Ventolin Hfa] C,E,Zinc,Copper 11/Qzbkd0d/Lut 1 each PO DAILY 12/15/18 01/02/19 01/01/19 History [Ocuvite Adult 50 Plus Softgel] Fexofenadine HCl 180 mg PO DAILY 12/15/18 01/02/19 01/01/19 History Fluticasone Propionate [24 Hour 9.9 ml NS DAILY 12/15/18 01/02/19 01/01/19 History Allergy] Hydralazine [Apresoline] 25 mg PO TID 12/15/18 01/02/19 01/01/19 History Hydrocodone/Acetaminophen 1 tab PO 3-4XDAY PRN PRN 12/15/18 01/02/19 01/01/19 History [Hydrocodone-Acetamin 5-325 mg] Ondansetron HCl 4 mg PO TID PRN 12/15/18 01/02/19 01/01/19 History Polyethylene Glycol 3350 [Miralax] 17 gm PO DAILY 12/15/18 01/02/19 01/01/19 History Carvedilol [Coreg] 12.5 mg PO BID #0 12/18/18 01/02/19 01/01/19 Rx Tamsulosin [Flomax] 0.4 mg PO QHS #30 cap 12/18/18 01/02/19 01/01/19 Rx Apixaban [Eliquis] 2.5 mg PO BID 01/02/19 01/02/19 01/01/19 History Esomeprazole [Nexium] 40 mg PO DAILY 01/02/19 01/02/19 01/01/19 History Ferrous Sulfate, Dried [Iron] 65 mg PO DAILY 01/02/19 01/02/19 01/01/19 History - History of Present Illness -Gen Adult Nature of Presenting Problems: 83 yof presents to er w/cc sharp pain in christianity on rt side, sweating and left leg numbness that started earlier today. pt also has had high bp today. pt's pcp told her she was having poss tia. pt left leg numbness has since gone away in er. Review of Systems - Adult - REVIEW OF SYSTEMS - ADULT Constitutional: reports: no symptoms reported Eyes: reports: no symptoms reported Ears, Nose, Mouth & Throat: reports: no symptoms reported Cardiovascular: reports: see HPI, other (elevated bp). denies: chest pain, irregular heart rate, orthopnea Respiratory: reports: no symptoms reported Gastrointestinal: reports: no symptoms reported Genitourinary: reports: no symptoms reported Musculoskeletal: reports: no symptoms reported Integumentary: reports: no symptoms reported Neurological: reports: see HPI, numbness (left leg), other (rt christianity sharp pain). denies: dizziness/vertigo, seizure, slurred speech Psychiatric: reports: no symptoms reported Endocrine: reports: see HPI, excessive sweating. denies: cold intolerance, heat intolerance, increased hunger, increased thirst, polyuria Hematologic/Lymphatic: reports: no symptoms reported Allergic/Immunologic: reports: no symptoms reported All Other Systems: Reviewed and Negative Past History - Adult - PAST MEDICAL HISTORY-ADULT Review of Records: reports: Old Records Reviewed, Nursing Assessment Review, Medications Reviewed, Social history reviewed & non-contributory. Major Childhood Illnesses: reports: denies history Cardiovascular: reports: A-Fib, HTN, hyperlipidemia Respiratory: reports: sleep apnea, other (sarcoidosis) Gastrointestinal: reports: GERD Obstetrical/Gynecological: reports: denies history Genitourinary: reports: kidney disease, other (only has one kidney) Musculoskeletal: reports: chronic pain (back; disc disease) Neurological: reports: denies history Psychiatric: reports: anxiety Endocrine/Immune: reports: thyroid disorder Other Conditions: reports: denies history - PRIOR SURGERIES/PROCEDURES Surgical/Procedure History: reports: cholecystectomy, hysterectomy, tonsillectomy, orthopedic (extremity) (LT ankle), other (lung bx, cataract sx) - IMMUNIZATION STATUS Childhood Immunizations: See Nurse Assessment Flu Vaccine: See Nurse Assessment - FAMILY HISTORY Family History: reviewed, not pertinent - SOCIAL HISTORY Smoking: non-smoker Substance Use: none/never Physical Exam-General - PHYSICAL EXAM-ADULT Initial Vital Signs Reviewed: Yes - CONSTITUTIONAL General Appearance: appears well, alert, no apparent distress - EYES Eyes: PERRL/EOMI - HEAD, EARS, NOSE, MOUTH & THROAT HENMT: normocephalic/atraumatic, moist mucous membranes, normal ENT inspection - NECK Neck: non-tender, full range of motion, supple, normal inspection - RESPIRATORY Respiratory: chest non-tender, lungs clear, normal breath sounds - CARDIOVASCULAR Cardiovascular: normal peripheral pulses, regular rate, rhythm - GASTROINTESTINAL (ABDOMEN) Abdominal Exam: normal bowel sounds, non tender, soft - LYMPHATIC Lymphatic: no adenopathy - MUSCULOSKELETAL Back Exam: normal inspection, no CVA tenderness, no vertebral tenderness Extremity: normal range of motion, non-tender, normal inspection, other (left leg no longer numb). negative: deformity, erythema, inflammation Peripheral Pulses: radial (R): 2+ - SKIN Integumentary: normal color, normal turgor, warm/dry - NEUROLOGIC Neurologic: motor weakness (2:4). negative: grossly normal, no motor/sensory deficits, facial droop, focal weakness - PSYCHIATRIC Psych/Mental Status: normal mood/affect, normal thought content, normal thought process, oriented x 3 Progress - PLAN OF CARE/RESULTS Result Diagrams: 01/01/19 22:55 01/01/19 22:55 - EKG 1 Time of EKG reading by physician:: 23:01 EKG Read and Signed by:: Demetris Marin EKG Interpretation (*Must complete 3 of following elements*): Abnormal Rate: 81 Rhythm: afib ST Wave: non-specific ST changes - CT/MRI 1 CT Study: Head Impression: See EMR Report (Bilateral chronic ischemic demyelination noted.) - CONSULTS/PCP/HOSPITALIST Notification #1 *Consult/PCP/Hospitalist*: Hospitalist Consult Disposition: Will see in ED, Admit Departure - Departure Date of Disposition Decision: 01/02/19 Time of Disposition Decision: 02:13 DIAGNOSIS: TIA (transient ischemic attack) Disposition: ADMITTED INPATIENT 09 Certified Medical Emergency: Emergent Condition: Fair Referrals and Follow-Ups: Orin Chan MD [Primary Care Provider] - - Critical Care Note This patient required my direct & personal management of CC.: No Attestation - Physician/ FER Attestation Patient care was provided by Advanced Practice Provider:: No The physician spent face to face time with patient:: Yes Advanced Practice Provider documentation review:: Supervising physician onsite and consulted in the evaluation and care of this patient. The physician did have a face to face encounter with the patient. This chart was documented by the indicated scribe, (Karina Hernández, Perla) and accurately reflects the services I performed and decisions made by me, Demetris Marin MD, as attested by the provider's signature.
[2019-01-01 23:44] LABS: AGAP 13; ALB/GLOB RATIO 1.5; ALBUMIN 4.2 g/dL (3.5-5.0); ALKALINE PHOSPHATASE 81 U/L (32-104); BUN 11 mg/dL (8-22); CALCIUM 10.1 mg/dL (8.8-10.2); CHLORIDE 103 mmol/L (98-107); COSMO 287; CREATININE 0.6 mg/dL (0.5-0.9); ESTIMATED GFR > 60; GLUCOSE 137 mg/dL (70-104); GOT 19 U/L (10-30); GPT 12 U/L (10-36); POTASSIUM 4.5 mmol/L (3.5-5.1); SODIUM 143 mmol/L (136-145); TCO2 27 mmol/L (25-35); TOTAL BILIRUBIN 0.28 mg/dL (0.20-1.00)
[2019-01-02] MEDS ORDERED: APRESOLINE IV ONE (00:36)
[2019-01-02] MEDS ORDERED: DOPAMINE ONE (01:34)
[2019-01-02] MEDS ORDERED: D5W ONE (01:34)
[2019-01-02] MEDS ORDERED: SODIUM BICARBONATE 8.4% ONE (01:47)
[2019-01-02] MEDS ORDERED: D5 1/2 NS + KCL 20 MEQ 1,000 ML IV ONE (03:37)
[2019-01-02] MEDS ORDERED: ZOFRAN PO PRN (03:41)
[2019-01-02] MEDS: NORCO-5 PO PRN ×4 (04:08→22:40)
--- NOTE | 2019-01-02 04:58 | HISTORY AND PHYSICAL ---
PRIMARY CARE PHYSICIAN: Dr. Orin Chan. PRESENTING COMPLAINT: Some dizziness and left lower extremity weakness. 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 The patient is wheelchair bound for the past 3 years. She was recently discharged from the hospital on 12/18/2018. On that occasion, she was treated for acute diverticular bleed. The patient underwent EGD and colonoscopy. At some point, I was told that she had bladder retention as well, so she was discharged with a Cabral catheter. Since then, she has been to Dr. Nunez multiple times, and the patient has also been to the ER since her last hospital discharge. In any case, Ms. Galindo seems to have been at her baseline until 5 p.m. yesterday afternoon. She was in her wheelchair, according to the family member, she felt sweaty and she felt like she was going to black out. She did not completely black out. Family members went to check on her blood pressure, at the time it was high, and since then she also complained of weakness in the left lower extremity associated with some numbness. Ms Galindo also complained of some abdominal discomfort, but this has been going on since the last time she was admitted to the hospital was found to have some diverticular bleed, and also ascending lipoma. Upon presenting to the emergency department, Ms Galindo was evaluated by the ER staff. We have been consulted for admission. PAST MEDICAL HISTORY: 1. Hypertension. 2. Chronic atrial fibrillation on Eliquis. 3. Sleep apnea. 4. History of sarcoidosis. 5. Esophagitis. 6. Duodenitis. 7. Hypertension. 8. Hypothyroidism. 9. Diverticular disease. 10. 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 11. Constipation. PAST SURGICAL HISTORY: 1. Hysterectomy. 2. Tonsillectomy. 3. Left ankle surgery. 4. Bilateral cataract surgery. ALLERGIES: To cephalexin. FAMILY HISTORY: Unremarkable. SOCIAL HISTORY: The patient lives with a daughter. She is currently wheelchair-bound and she is total care for the past 1 month. She denies any alcohol or tobacco use. No recreational drug use. HOME MEDICATIONS: 1. Folic acid 800 p.o. daily. 2. Allopurinol 100 mg b.i.d. 3. [place]-3. 4. Levothyroxine 75 mcg p.o. daily. 5. Losartan 100 mg p.o. daily. 6. Hydralazine 25 mg p.o. 3 times per day. 7. [place]. 8. Tamsulosin 0.4 p.o. at bedtime. 9. Apixaban 2.5 p.o. b.i.d. 10. Nexium 40 mg p.o. daily. 11. Iron. REVIEW OF SYSTEMS: Fourteen-point review of system conducted with Ms. Galindo and the family, is unremarkable except what we have in the HPI. PHYSICAL EXAMINATION: VITAL SIGNS: Blood pressure is 119/52, pulse 65, respirations 23, temperature is 97.6 degrees, patient is saturating now about 93% on room air. GENERAL: Ms. Galindo is an 83-year-old, elderly female, she was in bed. She did not seem to be in any cardiopulmonary distress. EARS, NOSE, AND THROAT: Mucosa is pink and dry. Anicteric. Acyanotic. NECK: Supple. There is no JVD. HEAD: Normocephalic and atraumatic. RESPIRATORY SYSTEM: There is good air entry bilaterally. No crepitations. No rhonchi. CARDIOVASCULAR: Regular rate and rhythm. No murmurs, no rubs, no gallops. GASTROINTESTINAL: Abdomen is soft. There is minimum tenderness to the left lower abdominal quadrant, but bowel sounds are present, however, are hypoactive. There was no hepatosplenomegaly palpated. LOWER EXTREMITIES: There is no edema. Distal pulses are present. POTATO CHIP COOKER MACHINE: Patient is awake, alert, oriented x3. Cranial nerves 2-12 have been grossly examined, they are unremarkable. The patient has normal power on the right side. The left lower extremity is barely able to lift against gravity, but then goes down. Intense of pinprick sensation. Patient refers to be feeling okay, feeling in both lower extremities. Babinski both downward going. MUSCULOSKELETAL: There is tenderness to palpation of the lumbar spine. IMAGING STUDIES: A CT scan of the head showed no acute intracranial pathology. ASSESSMENT AND PLAN: Ms. Galindo is an 83-year-old female who is for the most part wheelchair-bound with paraparesis, came to the emergency department because of sweating and a sensation of wanting to pass out and left lower extremity weakness. 1. Presyncopal episode. I think this is related to intravascular depletion. 2. Left lower extremity weakness, questionable for cerebrovascular accident. Initial CT scan is unremarkable. We will do an MRI to rule out acute stroke. It is also very possible that this left lower extremity weakness could be a myelopathy from the patient's chronic degenerative disk disease. 3. History of paraparesis. The patient has long standing history of lower extremity weakness. She has been to the spine surgery, she has had multiple injections to her back. She has been declared nonsurgical. She is wheelchair-bound for the past 3 years. 4. Clinical volume depletion. We will hydrate the patient overnight and re-evaluated her volume status in the morning. 5. Uncontrolled hypertension on presentation. We will start the patient on her home medications. 6. Chronic constipation with urinary retention. That sounds to be concerning for some form of cord lesion. However, as I said, Ms. Galindo has been evaluated extensively, [facility], and she has been declared nonsurgical. We will address the constipation with bowel regimen, and she also follows up with Dr. Nunez for the urinary retention. She is also on medications which will be started. So in general, we are going to admit Ms. Galindo to the medical floor. We will hydrate her well over the course of the night, get an MRI in the morning to rule out any acute stroke. Get physical therapy to start working with her. If she feels back to her baseline, I think we will be able to discharge her once we rule out any possible acute stroke or infection. cc: Steve Knowles MD
--- NOTE | 2019-01-02 06:46 | EKG Report ---
Test Performed on : 01/01/2019 11:01:50 PM Test Reason : possible CVA Blood Pressure : / mmHG Vent. Rate : 081 BPM Atrial Rate : 089 BPM P-R Int : 000 ms QRS Dur : 074 ms QT Int : 386 ms P-R-T Axes : 000 002 -11 degrees QTc Int : 448 ms Atrial fibrillation. Nonspecific ST abnormality Abnormal ECG When compared with ECG of 24-DEC-2018 08:46, (Unconfirmed) No significant change was found Unconfirmed Result
--- NOTE | 2019-01-02 07:01 | Diag Imaging Result Doc PS360 ---
EXAM: CT HEAD W/O CONTRAST 01/01/2019 HISTORY: possible CVA/TIA TECHNIQUE: This exam was performed using automated exposure control, adjustment of mA or kV according to patient size, and/or use of iterative reconstruction technique. COMMENT: There are patchy periventricular and subcortical white matter lucencies bilaterally. There is a lacune in the lateral basal ganglia on the right. Compared to the previous examination of 12/24/2018 the appearance the brain has not changed significantly. There is no evidence of mass effect bleed or abnormal extra-axial fluid collection. The calvarium is intact. There is some mucus in the left sphenoid sinus otherwise the visualized paranasal sinuses are clear. There has been no appreciable change in this regard. IMPRESSION: Chronic ischemic microvascular changes. No evidence of acute disease. Electronically signed by Geoff Monteiro 01/02/2019 6:59 AM
[2019-01-02] MEDS: MIRALAX PO SCH (08:47)
[2019-01-02] MEDS: APRESOLINE PO SCH ×3 (08:48→21:11)
[2019-01-02] MEDS: COREG PO SCH ×2 (08:48→21:11)
[2019-01-02] MEDS: SYNTHROID PO SCH (10:38)
[2019-01-02] MEDS: ELIQUIS PO SCH ×2 (10:39→21:10)
[2019-01-02] MEDS: ALLEGRA PO SCH (10:39)
[2019-01-02] MEDS: FISH OIL CONCENTRATE PO SCH ×2 (10:39→21:10)
[2019-01-02] MEDS: NEXIUM PO SCH (10:39)
[2019-01-02] MEDS: THERA M PLUS PO SCH (10:39)
[2019-01-02] MEDS: OCUVITE LUTEIN & ZEAXANTHIN PO SCH (10:39)
[2019-01-02] MEDS: ZYLOPRIM PO SCH ×2 (10:39→21:11)
--- NOTE | 2019-01-02 10:39 | Diag Imaging Result Doc PS360 ---
EXAM: MRI BRAIN W/O CONTRAST 01/02/2019 HISTORY: cva TECHNIQUE: T1 sagittal, axial, T2, FLAIR, DWI axial and coronal gradient echo. COMMENT: There is vermian atrophy. There is mild cerebral atrophy. There is extensive abnormal T2 weighted signal intensity in the subcortical and periventricular white matter bilaterally. There is no evidence of bleed or mass effect. There is no evidence of restricted diffusion. 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 No evidence of acute disease. Electronically signed by Geoff Monteiro 01/02/2019 10:36 AM
[2019-01-02] MEDS: COZAAR PO SCH (10:41)
[2019-01-02] MEDS: FERROUS SULFATE PO SCH (10:47)
[2019-01-02] MEDS: FOLIC ACID PO SCH (11:04)
[2019-01-02 14:56] LABS: URINE SOURCE CATH
[2019-01-02 14:59] LABS: BILIRUBIN URINE NEGATIVE (NEGATIVE); BLOOD URINE NEGATIVE (NEGATIVE); COLOR YELLOW; GLUCOSE URINE NEGATIVE (NEGATIVE); KETONE URINE NEGATIVE (NEGATIVE); LEUKOCYTES URINE NEGATIVE (NEGATIVE); NITRITE URINE NEGATIVE (NEGATIVE); PROTEIN URINE NEGATIVE (NEGATIVE); TURBIDITY URINE CLEAR (CLEAR); UROBILINOGEN URINE NORMAL (NORMAL)
[2019-01-02 15:01] LABS: UR EPITHELIAL CELLS <10 /HPF (<10); URINE BACTERIA NEGATIVE /HPF; URINE RBC <10 /HPF (<10); URINE WBC <10 /HPF (<10)
[2019-01-02] MEDS: FLONASE NAS SCH (15:06)
[2019-01-02] MEDS: FLOMAX PO SCH (21:10)
[2019-01-03] MEDS: SYNTHROID PO SCH ×2 (05:27→22:36)
[2019-01-03 05:56] LABS: BASO# 0.08 X1000 (0.0-0.2); BASO% 1.1 % (0.0-0.8); EOS# 0.43 X1000 (0.0-0.7); EOS% 5.8 % (0.0-10.0); HEMOGLOBIN 10.8 g/dL (12.0-16.0); IMM GRAN# 0.03 X1000 (0.0-0.04); IMM GRAN% 0.4 % (0.0-0.5); LYMPH# 2.53 X1000 (1.2-3.4); LYMPH% 33.9 % (20.5-51.1); MCH 28.9 PG (27-31); MCHC 30.9 g/dL (33-37); MCV 93.6 FL (81-99); MONO# 0.62 X1000 (0.11-0.59); MONO% 8.3 % (1.7-9.3); MPV 9.4 FL (7.4-10.4); NEUT# 3.77 X1000 (1.4-6.5); NEUT% 50.5 % (42.2-75.2); PLT 276 X1000 (130-400); RBC 3.74 XMIL (4.2-5.4); WBC 7.46 X1000 (4.8-10.8)
[2019-01-03 06:11] LABS: INR 1.04; PROTIME 14.5 Seconds (11.0-16.0)
[2019-01-03 06:25] LABS: AGAP 10; ALB/GLOB RATIO 1.1; ALBUMIN 3.4 g/dL (3.5-5.0); ALKALINE PHOSPHATASE 71 U/L (32-104); BUN 9 mg/dL (8-22); CALCIUM 9.8 mg/dL (8.8-10.2); CHLORIDE 103 mmol/L (98-107); COSMO 278; CREATININE 0.6 mg/dL (0.5-0.9); ESTIMATED GFR > 60; GLUCOSE 103 mg/dL (70-104); GOT 18 U/L (10-30); GPT 10 U/L (10-36); MAGNESIUM 1.7 mg/dL (1.5-2.7); POTASSIUM 4.4 mmol/L (3.5-5.1); SODIUM 140 mmol/L (136-145); TCO2 27 mmol/L (25-35); TOTAL BILIRUBIN 0.32 mg/dL (0.20-1.00); TOTAL PROTEIN 6.4 g/dL (6.3-8.3)
[2019-01-03] MEDS: THERA M PLUS PO SCH (08:47)
[2019-01-03] MEDS: FERROUS SULFATE PO SCH (08:47)
[2019-01-03] MEDS: COREG PO SCH ×2 (08:47→22:35)
[2019-01-03] MEDS: NEXIUM PO SCH (08:47)
[2019-01-03] MEDS: FISH OIL CONCENTRATE PO SCH ×2 (08:47→22:35)
[2019-01-03] MEDS: FOLIC ACID PO SCH (08:47)
[2019-01-03] MEDS: ALLEGRA PO SCH (08:47)
[2019-01-03] MEDS: OCUVITE LUTEIN & ZEAXANTHIN PO SCH (08:47)
[2019-01-03] MEDS: MIRALAX PO SCH (08:47)
[2019-01-03] MEDS: COZAAR PO SCH (08:47)
[2019-01-03] MEDS: ZYLOPRIM PO SCH ×2 (08:47→22:35)
[2019-01-03] MEDS: APRESOLINE PO SCH ×3 (08:47→22:35)
[2019-01-03] MEDS: ELIQUIS PO SCH ×2 (08:47→22:36)
[2019-01-03] MEDS: FLONASE NAS SCH (10:24)
--- NOTE | 2019-01-03 12:36 | PROGRESS NOTE ---
DATE: 01/03/2019 SUBJECTIVE: Patient currently notes that her dizziness has improved although not completely resolved, but her lower extremity weakness is back to her chronic baseline. After discussion with the son, he notes that she was stressed over home health coming because she does not like them in her house. The patient also notes that home health physical therapy caused increased pain last time and therefore she did not want to participate. PHYSICAL EXAMINATION: Vital signs: Temperature 98.1 degrees, pulse 64, respiratory 10, BP 157/83. General: Patient is awake, alert. She is in no current distress. Very pleasant to talk with. HEENT: Normocephalic. Neck: Supple. CARDIOVASCULAR: Regular rate. Chest: Clear. Abdomen: Soft. Extremities: She moves her upper extremities well. She has lower extremity weakness chronically. ASSESSMENT: 1. Presyncopal episode, resolved. 2. Left lower extremity weakness, appears resolved. 3. History of paraparesis. 4. Uncontrolled hypertension. Blood pressures are better this morning. Her blood pressure was very elevated during the episode yesterday. 5. Chronic constipation with urinary retention. PLAN: We will continue patient in the hospital today. Her MRI, MRA both were negative. She does have a urologic procedure set up with Dr. Jones on Saturday. We will continue to follow her blood pressures. If her blood pressures remain elevated, certainly should elevate her blood pressure medication to improve her blood pressure control. Uncertain of the etiology of her event yesterday. Certainly, anxiety, panic attack could have contributed to the situation. We will continue to follow. cc: Jasiel Wheeler MD
[2019-01-03] MEDS: FLOMAX PO SCH (22:35)
[2019-01-03] MEDS: NORCO-5 PO PRN (22:39)
[2019-01-04] MEDS: SYNTHROID PO SCH (06:09)
[2019-01-04] MEDS: FOLIC ACID PO SCH (08:35)
[2019-01-04] MEDS: ALLEGRA PO SCH (08:36)
[2019-01-04] MEDS: NEXIUM PO SCH (08:36)
[2019-01-04] MEDS: FISH OIL CONCENTRATE PO SCH ×2 (08:36→22:08)
[2019-01-04] MEDS: COZAAR PO SCH (08:36)
[2019-01-04] MEDS: OCUVITE LUTEIN & ZEAXANTHIN PO SCH (08:36)
[2019-01-04] MEDS: THERA M PLUS PO SCH (08:36)
[2019-01-04] MEDS: FERROUS SULFATE PO SCH (08:37)
[2019-01-04] MEDS: APRESOLINE PO SCH ×3 (08:37→22:08)
[2019-01-04] MEDS: FLONASE NAS SCH (08:37)
[2019-01-04] MEDS: ELIQUIS PO SCH ×2 (08:37→22:08)
[2019-01-04] MEDS: COREG PO SCH ×2 (08:37→22:10)
[2019-01-04] MEDS: ZYLOPRIM PO SCH ×2 (08:37→22:08)
[2019-01-04] MEDS: MIRALAX PO SCH (08:37)
[2019-01-04] MEDS: NORCO-5 PO PRN ×3 (10:12→22:08)
--- NOTE | 2019-01-04 13:11 | PROGRESS NOTE ---
DATE: 01/04/2019 SUBJECTIVE: Patient resting comfortably in bed. OBJECTIVE: Vital signs: Temperature 97.7 degrees, pulse 55, respiratory 22, blood pressure 155/61, oxygen saturation 98%. HEENT: Atraumatic, normocephalic. Cardiovascular: S1, S2. Respiratory: Evidence of good air entry bilaterally. Abdomen: Soft, nontender. No masses felt. Extremities: No evidence of significant edema. Central nervous system: Patient does have decreased strength in the left lower extremity. Otherwise, she is awake, alert and fairly oriented. LABORATORIES: None. ASSESSMENT AND PLAN: 1. Presyncope. CT scan as well as MRI of the brain are both unremarkable for any acute lesion. The patient down for a carotid Doppler study, 2D echo, and MRA of the head. I also will get a Neurology consult as well as an EEG. 2. History of paraparesis, probably related to degenerative joint disease. Patient does have tenderness over her lumbar spine. We will obtain an MRI of the lumbar region. 3. Hypertension. Continue current antihypertensive regimen. 4. Hypothyroidism. Continue levothyroxine. 5. History of atrial fibrillation. Continue beta-mauro as well as apixaban. 6. History of sleep apnea. Aware. Use CPAP if needed. 7. Urinary retention. The patient does have a Cabral catheter nd she is currently on Flomax. Urology consulted. 8. Deep vein thrombosis prophylaxis. Sequential compression devices. 9. Gastrointestinal prophylaxis. Proton pump inhibitor. cc: Dejon Hilario MD
[2019-01-04] MEDS: FLOMAX PO SCH (22:08)
--- NOTE | 2019-01-05 10:13 | Diag Imaging Result Doc PS360 ---
MRA BRAIN W/O CONTRAST - 01/04/2019 INDICATION: pre syncope TECHNIQUE: Noncontrast [id number] technique was used COMPARISON: None FINDINGS: The intracranial vessels are all patent. No aneurysm or stenosis. The right posterior communicating artery is absent, otherwise the [place] of [place] is complete. IMPRESSION: Negative exam. Electronically signed by Jann Su 01/05/2019 10:11 AM
[2019-01-05] MEDS: FERROUS SULFATE PO SCH (10:40)
[2019-01-05] MEDS: FOLIC ACID PO SCH (10:40)
[2019-01-05] MEDS: THERA M PLUS PO SCH (10:41)
[2019-01-05] MEDS: OCUVITE LUTEIN & ZEAXANTHIN PO SCH (10:41)
[2019-01-05] MEDS: ALLEGRA PO SCH (10:41)
[2019-01-05] MEDS: APRESOLINE PO SCH ×3 (10:41→21:56)
[2019-01-05] MEDS: FISH OIL CONCENTRATE PO SCH ×2 (10:41→21:56)
[2019-01-05] MEDS: ELIQUIS PO SCH ×2 (10:41→21:56)
[2019-01-05] MEDS: ZYLOPRIM PO SCH ×2 (10:41→21:56)
[2019-01-05] MEDS: NORCO-5 PO PRN ×2 (10:41→18:08)
[2019-01-05] MEDS: COREG PO SCH ×2 (10:42→21:56)
[2019-01-05] MEDS: MIRALAX PO SCH (10:42)
[2019-01-05] MEDS: COZAAR PO SCH (10:42)
[2019-01-05] MEDS: FLONASE NAS SCH (10:42)
[2019-01-05] MEDS: NEXIUM PO SCH (10:42)
[2019-01-05] MEDS: SYNTHROID PO SCH (10:46)
--- NOTE | 2019-01-05 11:45 | Diag Imaging Result Doc PS360 ---
EXAM: MRI LUMBAR SPINE W/O CONTRAST INDICATION: low back pain TECHNIQUE: COMPARISON: 12/01/2014 FINDINGS: There are endplate degenerative Modic signal changes at several levels, worst at L4-5 and L5-S1. This is similar to the previous study. Otherwise, the osseous marrow signal is essentially unremarkable. The conus medullaris appears normal. There is a simple appearing left renal cyst. Surrounding soft tissues are essentially unremarkable, otherwise. There is advanced multilevel degenerative disc disease and facet arthropathy with associated levoscoliosis. Segmental analysis of the lumbar spine is detailed below. L1-2: There is advanced degenerative disc disease. There is uncovertebral osteophyte formation causing moderate to severe bilateral foraminal stenosis, stable. L2-3: There is advanced degenerative facet arthropathy and milder degenerative disease. This causing moderate right neuroforaminal stenosis that is stable. L3-4: There is severe degenerative facet arthropathy. The broad-based disc bulge seen on the previous study is actually less prominent on the current study and there is less central stenosis. However, there is still severe right neuroforaminal stenosis. The central stenosis on the current study is mild to moderate in severity. L4-5: There is severe degenerative disc disease and hypertrophic facet arthropathy. This is causing severe central canal and severe right neuroforaminal stenosis. There is mild left neuroforaminal stenosis. This level is essentially stable. L5-S1: There is a broad-based disc osteophyte complex with a more prominent left lateralizing and degenerative disc disease. This causing moderate to severe left neuroforaminal stenosis that is grossly stable. There is mild effacement of ventral thecal sac that is stable. IMPRESSION: Severe multilevel degenerative disc disease and facet arthropathy as detailed level by level above. Electronically signed by Peterson Hernández 01/05/2019 11:42 AM
--- NOTE | 2019-01-05 13:39 | PROGRESS NOTE ---
DATE: 01/05/2019 SUBJECTIVE: The patient is resting comfortably in bed. Has a daughter present in the room. Not in any obvious distress at this time. OBJECTIVE: Vital Signs: Temperature 98.4 degrees, pulse 69, respiratory rate 16, blood pressure 136/38, oxygen saturation is 98%. HEENT: Atraumatic, normocephalic. Cardiovascular System: S1 and S2. Respiratory System: Has evidence of good air entry bilaterally. Abdomen: Soft, nontender. No masses felt. Extremities: No evidence of significant edema. Central Nervous System: The patient does have paraparesis. Laboratory Data: MRI of the lumbar spine showed evidence of severe multilevel degenerative disk disease as well as facet arthropathy. ASSESSMENT AND PLAN: 1. Presyncope. The patient seemed to be doing well at this time. Neuroimaging has proved to be unremarkable. The patient is awaiting electroencephalogram as well as neurology evaluation. 2. History of her paraparesis related to severe degenerative joint disease of the lumbar spine. MRI of the lumbar spine does confirm severe degenerative joint disease. The patient has been deemed to be a nonsurgical candidate in the past. I discussed with the daughter the option of the patient getting epidural steroid injections for severe low back pain and she seemed to be open to the idea. Hopefully, they might pursue this path in the future. 3. Hypertension. Continue current antihypertensive regimen. 4. Hypothyroidism. Continue levothyroxine. 5. History of atrial fibrillation. Continue beta blockers as well as apixaban. 6. History of sleep apnea. Aware. Use CPAP if needed. 7. Urinary retention. Maintain patient on a Cabral catheter as well as Flomax. Urology consulted. 8. Deep vein thrombosis prophylaxis. Sequential compression devices. 9. Gastrointestinal prophylaxis. Proton pump inhibitor. cc: Dejon Hilario MD
--- NOTE | 2019-01-05 13:51 | EKG Report ---
Test Performed on : 01/05/2019 1:40:26 PM Test Reason : afib Blood Pressure : / mmHG Vent. Rate : 056 BPM Atrial Rate : 054 BPM P-R Int : 000 ms QRS Dur : 080 ms QT Int : 436 ms P-R-T Axes : 000 -18 -13 degrees QTc Int : 420 ms Atrial fibrillation. with slow ventricular response. Abnormal ECG When compared with ECG of 01-JAN-2019 23:01, (Unconfirmed) No significant change was found Unconfirmed Result
--- NOTE | 2019-01-05 16:22 | CONSULTATION ---
DATE OF CONSULTATION: 01/05/2019 REASON FOR CONSULT: Dizziness. HISTORY OF PRESENT ILLNESS: This is an 83-year-old, female with a history of atrial fibrillation, hypertension, and severe degenerative disk disease with chronic lower extremity weakness. She is admitted 4 days ago after an event of dizziness. History is from the patient and her attentive daughter. Apparently since November, around ' she has had 4 total events. She reports having dizziness that she describes as a sense that she will pass out but then later describes as a sense of internal motion and feeling that she will fall over from that. She has a bello of warmth or flushing. She has sweating. There has been nausea and vomiting with it and typically she gets a headache with this. She may feel generally weak. With this last event which brought her to the hospital this time she reports also having left lower extremity heaviness as if several bricks were attached to it. That symptom gradually resolved overnight after she came to the hospital but was there for several hours. She did not have other associated symptoms. Her blood pressures were relatively high when checked at home. She cannot think of any exacerbating or alleviating factors with these episodes. She does not recall these episodes being positional or associated with turning. She does not currently have headache. She has been essentially in a wheelchair for 3 years. She has been able to transfer from her bed to the bedside commode but in the last 1 month or so she has had to have more assistance. She was just hospitalized here in November and discharged at the end of November for diverticular bleed. She had some urinary retention. She was having difficulty with urinary retention that hospitalization with Cabral catheter placement that has been managed as an outpatient. PAST MEDICAL HISTORY: 1. Atrial fibrillation, on Eliquis. 2. Hypertension. 3. Chronic lower extremity weakness and gait difficulty secondary to degenerative disk disease. Daughter and patient report she has been deemed a nonsurgical candidate. 4. Sleep apnea. 5. Recent diverticular bleed. 6. Hypothyroidism. PAST SURGICAL HISTORY: 1. Bilateral cataract surgery. 2. Left ankle surgery. FAMILY HISTORY: Noncontributory. SOCIAL HISTORY: She lives with her daughter. She has been wheelchair dependent for about 3 years though she can typically transfer from bed to a bedside commode. In the last month or so she has required more assistance with that. No tobacco or alcohol. ALLERGIES: To cephalexin. HOME MEDICATIONS: Reviewed in the chart. Include apixaban 2.5 mg p.o. b.i.d. REVIEW OF SYSTEMS: Balance of 12 was conducted and is otherwise negative except that detailed in the HPI. PHYSICAL EXAMINATION: Vital Signs: Afebrile, blood pressure 136/38. 180/94 on admission. Pulse 60s respirations 16. 98% on room air. Ms. Galindo is supine in bed. Awake alert and oriented. She was off by 1 day on the day of the week and could not tell me the name of the president. She follows simple and complex commands. Left right and digit distinction preserved. No language disturbance. No dysarthria pupils equal, round, and reactive. Gaze conjugate gaze. Ocular movements are full. Visual oliveira intact to direct confrontational testing. Face symmetric with equal activation. Facial sensation reported intact. Tongue is midline. Palate elevates symmetrically. Shoulder shrug is full. Motor exam: She has some limitations to strength testing with the right upper extremity due to recent rotator cuff injury. Left upper extremity strength is preserved. Colorer Machine are symmetric and preserved. Hip flexors bilaterally 4+ out of 5, adductors 4+ out of 5. Knee flexion knee extension 4+ out of 5. Left dorsiflexion 4/5, right 5/5. Plantar flexion 5/5 bilaterally. Extensor hallucis longus 5/5. Bilaterally foot inversion and eversion 5/5. She reports preserved sensation of pinprick in the extremities that is symmetric. Reflexes trace left knee, absent right knee, absent ankle jerks. No clonus. Plantar response is downgoing. Trace wrist jerks. [id number] and rapid alternating movements are intact. DIAGNOSTICS: MRI of the brain noncontrast showing no acute findings. There is chronic microvascular ischemic changes and mild cerebral atrophy. MRA of the brain showing patent vessels. No aneurysms or stenosis. Lumbar spine MRI showing severe multilevel degenerative disk disease and facet arthropathy. This study is compared to 2015 and appears to be stable. Head CT showing chronic changes no acute findings. Normal white count, sodium, BUN, creatinine. Blood sugars 103 to 137. Calcium and magnesium normal. AST ALT normal. Routine EEG was personally reviewed and is normal in the awake state. ASSESSMENT AND PLAN: 1. Abrupt episodes of dizziness at times with associated nausea, vomiting, headache and diaphoresis. Patient reports presyncopal feeling but later reports sense of internal motion that is more suggestive of vertiginous symptoms. Difficult to activities therapist by history but workup for both is underway. Thus far cranial imaging has not shown acute abnormality, specifically no evidence for stroke. She does report ringing in the ears for a while and that is also more suggestive of a primary inner ear problem. This does not sound typical of seizure and a routine EEG this admission was normal. 2. Transient left lower extremity weakness on admission. This lasted for several hours before resolution to her reported baseline mild left lower extremity more than right lower extremity weakness. The etiology is uncertain. TIA cannot definitely be excluded. However, I would have expected to see some evidence of ischemic change on neuro imaging given the duration of those symptoms if this were to have been an ischemic event. It is reassuring that it has resolved. She is already taking Eliquis for her atrial fibrillation and I would continue that. Lumbar spine MRI showed severe degenerative disk disease which was apparently stable when compared to 2015. I would continue with PT. Thank you for the consultation. cc: Cassidy Kimball MD MTDD
--- NOTE | 2019-01-05 19:15 | Carotid Study ---
DATE: 01/04/2019 PROCEDURE: Bilateral carotid duplex. REQUESTING PHYSICIAN: Dr. Hilario. INTERPRETING PHYSICIAN: Dr. João Wheatley. TECH: Calder. INDICATIONS: Dizziness. OBSERVED DATA RIGHT LEFT Brachial Blood Pressure Carotid Pulse Bruits: Carotid/Sub DIAGRAM OF ULTRASOUND IMAGING R L RIGHT INT EXT INT EXT LEFT Joseph (cm/s) Joseph (cm/s) Subclavian 87/0 Subclavian 85/0 CCA Proximal 76/13 CCA Proximal 72/12 CCA Distal 77/2 CCA Distal 64/16 Bulb 72/11 Bulb 69/9 ICA Proximal 56/13 ICA Proximal 109/26 ICA Mid 54/12 ICA Mid 108/23 ICA Distal 103/17 ICA Distal 62/18 ECA 149/7 ECA 70/0 Vertebral 49/11 A Vertebral 56/13 A ICA/CCA Ratio 1.33 ICA/CCA Ratio 1.51 % Stenosis 0-39% % Stenosis 0-39% FINDINGS: There is some mild atherosclerotic change noted in the right carotid bulb but no hemodynamically significant lesion noted bilaterally. SUMMARY: Mild atherosclerotic changes but no hemodynamic significant lesion noted in bilateral carotid system. cc: MD Dejon Cheatham MD
--- NOTE | 2019-01-05 19:40 | CONSULTATION ---
DATE OF CONSULTATION: 01/05/2019 ATTENDING AND REFERRING PHYSICIAN: Hospitalist. HISTORY OF PRESENT ILLNESS: This 83-year-old female was admitted with dizziness and pre syncopal episode. The patient states she just felt very weak. She is undergoing evaluation for that. The patient has a long history of severe lumbosacral degenerative joint disease that has caused severe lower extremity weakness such that she has to use a wheelchair to get around. This has also caused fecal incontinence and urinary retention. She was admitted to the hospital in November for diverticular bleed and had problems with retention at that time. She was sent home without a catheter and had to return to the emergency room because of retention. She has had 2 voiding trials as an outpatient in the urinary clinic without success. PAST MEDICAL HISTORY: 1. As noted in the HPI. 2. Hypertension. 3. Chronic atrial fibrillation. 4. Sleep apnea. 5. History of sarcoidosis. 6. Hypothyroidism. 7. Diverticular disease. 8. Constipation. CURRENT MEDICATIONS: Documented on the chart and include Flomax. PAST SURGICAL HISTORY: 1. Cataract surgery. 2. Left ankle surgery. 3. Tonsillectomy. 4. Hysterectomy. SOCIAL HISTORY: She lives with her daughter. There is no tobacco or alcohol use. ALLERGIES: She is allergic to cephalexin. REVIEW OF SYSTEMS: She states she was feeling well and then started having dizziness and feeling like she was going to pass out. She denies any problems with diabetes, strokes, or seizures. She does wear diapers to control her bowels. PHYSICAL EXAMINATION: General: An obese, age apparent, normally developed, white female, who is cooperative. HEENT: Normal for age. Lungs: Clear. Cardiovascular: Regular rate and rhythm. Abdomen: Protuberant, soft, nontender. No hepatosplenomegaly or masses. Normal bowel sounds. Genitourinary: Deferred today. Extremities: No clubbing, cyanosis, or edema. Neurologic: Weakness of the lower extremities. LABORATORY EVALUATION: White count of 7.46, hemoglobin 10.8, hematocrit of 35, platelets are 276,000. Serum electrolytes are normal. BUN 9 creatinine 0.6. IMPRESSION: Severe degenerative joint disease of the lumbosacral spine that has resulted in a neurogenic bladder with retention, fecal incontinence, and severe lower extremity weakness. RECOMMENDATIONS: 1. Continue Cabral catheter drainage since she has failed voiding trials 2 times. 2. She will undergo cystoscopic exam in the office. Thank you for this consultation. cc: Anshul Nunez MD
[2019-01-05] MEDS: FLOMAX PO SCH (21:56)
[2019-01-06] MEDS: SYNTHROID PO SCH ×2 (05:41→06:20)
[2019-01-06] MEDS: NORCO-5 PO PRN ×2 (05:41→13:01)
[2019-01-06] MEDS: MIRALAX PO SCH (09:36)
[2019-01-06] MEDS: ELIQUIS PO SCH (09:38)
[2019-01-06] MEDS: NEXIUM PO SCH (09:38)
[2019-01-06] MEDS: FISH OIL CONCENTRATE PO SCH (09:38)
[2019-01-06] MEDS: ALLEGRA PO SCH (09:38)
[2019-01-06] MEDS: OCUVITE LUTEIN & ZEAXANTHIN PO SCH (09:38)
[2019-01-06] MEDS: FOLIC ACID PO SCH (09:38)
[2019-01-06] MEDS: APRESOLINE PO SCH (09:39)
[2019-01-06] MEDS: COZAAR PO SCH (09:39)
[2019-01-06] MEDS: THERA M PLUS PO SCH (09:39)
[2019-01-06] MEDS: FERROUS SULFATE PO SCH (09:40)
[2019-01-06] MEDS: COREG PO SCH (09:40)
[2019-01-06] MEDS: ZYLOPRIM PO SCH (09:40)
[2019-01-06] MEDS: FLONASE NAS SCH (10:55)
[2019-01-06 11:06] VITALS: BP 128/41
--- NOTE | 2019-01-06 12:33 | DISCHARGE SUMMARY ---
ADMISSION DATE: 01/02/2019 DISCHARGE DATE: PRINCIPAL DIAGNOSIS: Presyncope, query etiology. SECONDARY DIAGNOSES: 1. 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 2. Hypertension. 3. Hypothyroidism. 4. History of atrial fibrillation. 5. History of obstructive sleep apnea. 6. History of urinary retention. 7. History of sarcoidosis. 8. Diverticular disease. 9. Peptic ulcer disease. DISCHARGE MEDICATIONS: Include the following. Folic acid 0.8 mg to be taken once a day. Allopurinol 100 g p.o. daily. One A Day Women's Formula daily. Tracy-3 fatty acids 1200 twice a day. Synthroid 75 mcg p.o. daily. Losartan 100 mg p.o. daily. Albuterol sulfate inhaler 2 puffs every 6 hours as needed. Hydralazine 25 mg p.o. 3 times a day. Ocuvite Adults 50+ soft gel 1 p.o. daily. Fexofenadine 180 mg p.o. daily. Fluticasone to be taken as directed. Huxley 10/325 every 3 to 4 hours daily p.r.n. Ondansetron 4 mg p.o. 3 times a day as needed. MiraLAX 17 g daily. Tamsulosin 0.4 mg p.o. at bedtime. Coreg 25 mg p.o. twice a day. Apixaban 2.5 mg p.o. twice a day. Nexium 40 mg p.o. daily. Ferrous sulfate 65 mg p.o. once a day. CONSULTATIONS DONE DURING THIS HOSPITAL STAY: Include the following: Cassidy Kimball MD, Neurology; Anshul Nunez MD, Urology. PROCEDURES DONE DURING THIS HOSPITAL STAY: Head CT 01/01/2019. Brain MRI 01/02/2019. Lumbar spine MRI 01/04/2019. Carotid Doppler study 01/04/2019. Brain MRA on 01/04/2019. HOSPITAL COURSE: Ms. Alison Galindo is an 83-year-old female. She does have a history of chronic atrial fibrillation and she is on Eliquis, gastroesophageal reflux disease, hypertension, dyslipidemia, degenerative joint disease of the lumbar spine. The patient is wheelchair-bound for the past 3 years. The patient presents to the hospital after she felt diaphoretic and experienced an episode of loss of consciousness. The patient was not completely unconscious. Family members checked her blood pressure, and it was noted to be elevated. The patient was subsequently brought to the hospital. She did have a CT scan of the brain, which did not show any acute intracranial pathology. Follow-up MRI studies of the brain did not reveal any acute process. Carotid Doppler study did not show any hemodynamically significant lesions to suggest occlusion of the carotid arteries. She was seen by the Neurology team. No major intervention recommended. She was also seen by Urology because of urinary retention. MRI of her lumbar spine did show evidence of significant degenerative joint disease of her lumbar spine. I discussed with the patient's daughter about the patient getting epidural steroid injection since such she has been declared in the past not to be a surgical candidate, and she was open to the idea. At this time, the patient has done well. She is stable. She can be discharged back home. PHYSICAL EXAMINATION: Vital signs: During my evaluation today, her vital signs were as follow. Temperature 97.6 degrees, pulse 60, respiratory rate 16, blood pressure 120/41, oxygen saturation is 98%. HEENT: Atraumatic, normocephalic. Cardiovascular system: S1, S2. Respiratory system: Has evidence of good entry bilaterally. Abdomen: Soft, nontender. No masses felt. Extremities: No evidence of edema in the lower extremities. PLAN: Plan is for the patient to be discharged home today. She will need to follow up with Neurology as well as Urology in the outpatient. The patient also needs to follow up with her primary care physician who will need to set up epidural steroid injections. She is expected to take her discharge medications as noted above. DISPOSITION: The patient is going to be discharged home with home health services. cc: Dejon Hilario MD [facility]
--- NOTE | 2019-01-06 13:12 | EEG REPORT ---
DATE: 01/04/2019 REFERRING PHYSICIAN: Dr. Hilario. PICC NURSE: Magda Winkler. BACKGROUND INFORMATION AND TECHNIQUE: This is a digitally recorded routine EEG with video. HISTORY: An 83-year-old, female patient admitted with event raising the question of seizure. She reports sitting in a wheelchair, suddenly feeling sweaty as if she would pass out. She did not completely lose consciousness. Blood pressure was elevated. EEG was ordered to detect evidence of seizures. MEDICATIONS: Include p.r.n. [place]. EEG FINDINGS: A posterior dominant alpha rhythm is not seen. The background consists of mixed alpha and beta range frequencies. Excessive beta frequency is seen diffusely. No focal slowing. No epileptiform discharges. No seizures. Hyperventilation was not performed. Photic stimulation does not alter the record. The patient becomes drowsy but stage II sleep is not seen. EKG demonstrates irregular intervals. IMPRESSION AND CLINICAL CORRELATION: Normal routine EEG in the awake and drowsy states. Of note, a normal EEG does not rule out epilepsy. cc: MD Dejon Mejia MD [facility]
--- NOTE | 2019-01-06 13:45 | ECHO REPORT ---
ORDER DATE: 01/04/2019 MEASUREMENTS: Left ventricular end-diastolic diameter 5.3, end systolic 3.7, septal thickness 1.1, posterior wall thickness 1.1, aortic root 3.2, left atrium 5.1. SUMMARY: 1. Adequate quality study. 2. Aortic valve is trileaflet. The right coronary cusp appears thickened and calcified with severely reduced mobility. Peak gradient across aortic valve is 21 mmHg with a mean gradient of 10 mmHg. Calculated aortic valve area by Doppler is 1.3 cm2 suggesting moderate aortic stenosis. There is mild aortic regurgitation. Mild to moderate mitral annular calcification is demonstrated with very mild mitral regurgitation. Tricuspid and pulmonic valves are without evidence of structural abnormality. There is very mild tricuspid regurgitation. The estimated systolic PA pressure by Doppler is 40 mmHg suggesting mild pulmonary hypertension. Aortic root is normal in size. 3. Normal left ventricular dimensions demonstrated. Estimated left ejection fraction appears to be at least 60%. No regional wall motion abnormalities evident. Left atrium is moderately enlarged. Right atrium, right ventricle are normal size with grossly preserved right ventricular systolic function. 4. No pericardial effusion. 5. Appearance of inferior vena cava suggests normal central venous pressure. cc: MD Dejon Carrion MD
== END 2019-01-06 13:48 | disposition home health service (06) | DRG 312 ==
LOC: SUPCPDRO → ED 22:19 → EDIPHOLD 01-02 04:04 → SUATTDRO 01-02 04:04 → 4N 01-02 09:33
PROVIDERS: ATTEND Internal Medicine
CPT/HCPCS: 51702; 70450; 70544; 70551; 72148; 80053; 81001; 83735; 84443; 84484; 85025; 85610; 85730; 93005; 93010; 93306; 93880; 95816; 96365; 96366; 96375; 97110; 97162; 97530; 99285; A9270; C8929; J0360; J1265; J3480; Q9957